=== PATIENT | male | born 1940 | race Caucasian/White ===

== ENCOUNTER 2018-02-17 05:58 | Day surgery (SDC) | payer MEDICARE, OTHER ==
[~2018-02-17 05:58] MED LIST: Lidocaine 1%/Sod Bicarbonate in NS 8.4% 1 ML Syringe IDERM PRN; Sodium Chloride 0.9% 10 ML Syringe FLUSH PRN
[2018-02-17] MEDS ORDERED: ceFAZolin 1 GM Vial ONE ×2 (06:20→06:51)
[2018-02-17] MEDS ORDERED: Iodine/Sodium Iodide 2% Tincture 30 ML Bottle ONE (06:20)
[2018-02-17] MEDS ORDERED: Vancomycin 1 GM SDV ONE (06:20)
[2018-02-17] MEDS ORDERED: Bupivacaine 0.25% 30 ML SDV ONE (06:21)
[2018-02-17] MEDS: Lactated Ringers 1,000 ML IV SCH ×2 (06:25→09:31)
[2018-02-17] MEDS ORDERED: Bisacodyl 5 MG Tab PO PRN (06:40)
[2018-02-17] MEDS ORDERED: Naloxone 0.4 MG/ML SDV IVPUSH PRN (06:40)
[2018-02-17] MEDS ORDERED: Ondansetron 4 MG/2 ML SDV IVPUSH PRN ×2 (06:40→08:24)
[2018-02-17] MEDS ORDERED: Morphine 2 MG/ML Syringe IVPUSH PRN (06:40)
[2018-02-17] MEDS ORDERED: Sennosides 8.6 MG Tab PO PRN (06:40)
[2018-02-17] MEDS ORDERED: Magnesium Hydroxide 400 MG/5 ML Susp 30 ML Cup PO PRN (06:40)
[2018-02-17] MEDS ORDERED: fentaNYL 100 MCG/2 ML SDV ONE (06:51)
[2018-02-17] MEDS ORDERED: Midazolam 1 MG/ML 2 ML SDV ONE (06:51)
[2018-02-17] MEDS ORDERED: Lidocaine 1% 4 ML ONE (06:51)
[2018-02-17] MEDS ORDERED: Ketorolac 30 MG/ML SDV ONE (06:51)
[2018-02-17] MEDS ORDERED: Bupivacaine 0.25% 10 ML SDV ONE (06:51)
[2018-02-17] MEDS ORDERED: Ketamine 500 mg/10 ML MDV ONE (06:51)
[2018-02-17] MEDS ORDERED: Propofol 200 MG/20 ML SDV ONE (06:51)
[2018-02-17] MEDS ORDERED: Lidocaine 1% 2 ML ONE (06:52)
[2018-02-17] MEDS ORDERED: Acetaminophen 325 MG Tab PO ONE (06:57)
[2018-02-17] MEDS ORDERED: Scopolamine 1.5 MG Transdermal Patch TOP ONE (07:10)
--- NOTE | 2018-02-17 07:15 | PCM.PREANE ---
Preanesthetic Assessment - Anesthesia/Transfusion/Family Hx Anesthesia History: Prior Anesthesia Reaction Type of Anesthesia Reaction: Excessive Nausea/Vomiting Family History of Anesthesia Reaction: No Transfusion History: No Prior Transfusion(s) - Review of Systems General: Malaise Pulmonary: Shortness of Breath (when he is doing a lot of activity) Cardiovascular: No Symptoms Gastrointestinal: No Symptoms Neurological: Other (Trigeminal neuralgia. Hard of hearing. Memory loss. ) - Physical Assessment NPO Status Date: 02/16/18 NPO Status Time: 21:00 O2 Sat by Pulse Oximetry: 94 Respiratory Rate: 16 Vital Signs: Last Vital Signs Temp 36.7 C 02/17/18 06:05 Pulse 62 02/17/18 06:05 Resp 16 02/17/18 06:05 BP 145/88 H 02/17/18 06:05 Pulse Ox 94 L 02/17/18 06:05 Height: 1.78 m Weight: 97.976 kg ASA Class: 2 Mental Status: Alert & Oriented x3 Airway Class: Mallampati = 2 Dentition: Reports: Missing Tooth/Teeth, Caries (Fillings/Caps) Thyro-Mental Finger Breadths: 3 Mouth Opening Finger Breadths: 3 ROM/Head Extension: Full Lungs: Clear to Auscultation, Normal Respiratory Effort Cardiovascular: Regular Rate, Regular Rhythm - Lab Values: Laboratory Last Values MRSA (PCR) Negative 02/04/18 11:04 - Imaging/EKG Impressions: Sinus Rhythm - Allergies Allergies/Adverse Reactions: Allergies Allergy/AdvReac Type Severity Reaction Status Date / Time No Known Allergies Allergy Verified 02/14/18 11:39 - Anesthesia Plan Beta [place]: Metoprolol Med Last Dose Date: 02/17/18 Med Last Dose Time: 05:00 - Acknowledgements Anesthesia Type Planned: Spinal Pt an Appropriate Candidate for the Planned Anesthesia: Yes Alternatives and Risks of Anesthesia Discussed w Pt/Guardian: Yes Pt/Guardian Understands and Agrees with Anesthesia Plan: Yes PreAnesthesia Questionnaire HEENT History: Reports: Hard of Hearing, Otitis Media, Sinusitis, Other (See Below) Other HEENT History: has glasses, hearing aids, pharyngitis Cardiovascular History: Reports: High Cholesterol, Hypertension Respiratory History: Reports: SOB, Other (See Below) Other Respiratory History: URI, bronchitis, pulmonary nodules, pneumonia Gastrointestinal History: Reports: None Genitourinary History: Reports: Other (See Below) Other Genitourinary History: prostate hypertrophy 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 Musculoskeletal History: Reports: Osteoarthritis, Other (See Below) Other Musculoskeletal History: lower leg arthropathy Neurological History: Reports: Other (See Below) Other Neuro History: memory loss, trigeminal neuralgia with surgical repair Psychiatric History: Reports: Other (See Below) Other Psychiatric History: malaise, fatigue Endocrine/Metabolic History: Reports: Diabetes, Type II, Hypothyroidism Hematologic History: Reports: None Immunologic History: Reports: None Oncologic (Cancer) History: Reports: Basal Cell Carcinoma Dermatologic History: Reports: Other (See Below) Other Dermatologic History: actinic keratosis, cellulitis and abcess, frostbite to feet, basal cell ca - Past Surgical History Head Surgeries/Procedures: Reports: Craniotomy HEENT Surgical History: Reports: None Cardiovascular Surgical History: Reports: None Respiratory Surgical History: Reports: None GI Surgical History: Reports: Cholecystectomy Female Surgical History: Reports: None Male Surgical History: Reports: None Endocrine Surgical History: Reports: None Neurological Surgical History: Reports: Other (See Below) Other Neurological Surgeries/Procedures: craniotomy Musculoskeletal Surgical History: Reports: None Oncologic Surgical History: Reports: None Dermatological Surgical History: Reports: None - SUBSTANCE USE Smoking Status *Q: Former Smoker Days Per Week of Alcohol Use: 0 Recreational Drug Use History: No - HOME MEDS Home Medications: Home Meds Levothyroxine Sodium 25 mcg PO DAILY 01/21/15 [History] Metoprolol Tartrate 25 mg PO BID 01/21/15 [History] atorvaSTATin Calcium [Atorvastatin Calcium] 20 mg PO DAILY 01/21/15 [History] Aspirin [[place] Aspirin] 81 mg PO DAILY 02/14/18 [History] Flaxseed Oil 1,000 mg PO DAILY 02/14/18 [History] Naproxen Sodium [Aleve] 220 mg PO BID PRN 02/14/18 [History] - CURRENT (IN HOUSE) MEDS Current Meds: Current Medications Aspirin (Ecotrin) 325 mg PO BID [facility] Bisacodyl (Dulcolax) 5 mg PO DAILY PRN PRN Reason: Constipation Morphine Sulfate 8 mg/Epinephrine HCl 0.3 mg/Cefuroxime Sodium 750 mg/Ketorolac Tromethamine 30 mg/Sodium Chloride 27.9 ml 0 mg .XX ONETIME ONE Stop: 02/17/18 07:31 Docusate Sodium (Colace) 100 mg PO BID [facility] Famotidine (Pepcid) 20 mg PO Q12H [facility] Lactated Ringer's (Ringers, Lactated) 1,000 mls @ 125 mls/hr IV ASDIRECTED [facility] Stop: 02/17/18 23:00 Cefazolin Sodium/Dextrose 2 gm (/ Premix) 50 mls @ 100 mls/hr IV Q8H [facility] Stop: 02/17/18 23:14 Acetaminophen (Ofirmev) 65 mls @ 400 mls/hr IV NOW ONE Stop: 02/17/18 07:15 Ketorolac Tromethamine (Toradol) 15 mg IVPUSH Q6H PRN PRN Reason: Pain Lidocaine/Sodium Bicarbonate (Buffered Lidocaine 1% In Ns 8.4%) 0.25 ml IDERM ONETIME PRN PRN Reason: Prior to IV Start Stop: 02/17/18 18:00 Magnesium Hydroxide (Milk Of Magnesia) 30 ml PO BID PRN PRN Reason: Constipation Morphine Sulfate (Morphine) 2 mg IVPUSH Q2H PRN PRN Reason: Breakthrough Pain Naloxone HCl (Narcan) 0.1 mg IVPUSH Q5M PRN PRN Reason: Oversedation Ondansetron HCl (Zofran) 4 mg IVPUSH Q6H PRN PRN Reason: Nausea/Vomiting Oxycodone HCl (Oxycontin) 10 mg PO ONETIME ONE Stop: 02/17/18 07:31 Oxycodone/Acetaminophen (Percocet 325-5 Mg) 1 - 2 tab PO Q4H PRN PRN Reason: Pain Pregabalin (Lyrica) 50 mg PO DAILY [facility] Senna (Senna) 8.6 mg PO BID PRN PRN Reason: Constipation Sodium Chloride (Saline Flush) 10 ml FLUSH ASDIRECTED PRN PRN Reason: Keep Vein Open Stop: 02/17/18 18:00 Discontinued Medications Acetaminophen (Tylenol) 1,000 mg PO NOW ONE Stop: 02/17/18 06:58 Bupivacaine HCl (Marcaine 0.25%) Confirm Administered Dose 30 ml .ROUTE .STK- MED ONE Stop: 02/17/18 06:22 Bupivacaine HCl (Sensorcaine-Mpf 0.25%) Confirm Administered Dose 10 ml .ROUTE .STK-MED ONE Stop: 02/17/18 06:52 Cefazolin Sodium (Ancef) Confirm Administered Dose 2 gm .ROUTE .STK-MED ONE Stop: 02/17/18 06:21 Cefazolin Sodium (Ancef) Confirm Administered Dose 2 gm .ROUTE .STK-MED ONE Stop: 02/17/18 06:52 Fentanyl (Sublimaze) Confirm Administered Dose 100 mcg .ROUTE .STK-MED ONE Stop: 02/17/18 06:52 Lidocaine HCl (Xylocaine-Mpf 1%) Confirm Administered Dose 4 mls @ as directed .ROUTE .STK-MED ONE Stop: 02/17/18 06:52 Lidocaine HCl (Xylocaine-Mpf 1%) Confirm Administered Dose 2 mls @ as directed .ROUTE .STK-MED ONE Stop: 02/17/18 06:53 Iodine (Iodine 2% Mild Tincture) Confirm Administered Dose 30 ml .ROUTE .STK- MED ONE Stop: 02/17/18 06:21 Ketamine HCl (Ketalar) Confirm Administered Dose 500 mg .ROUTE .STK-MED ONE Stop: 02/17/18 06:52 Ketorolac Tromethamine (Toradol) Confirm Administered Dose 30 mg .ROUTE .STK- MED ONE Stop: 02/17/18 06:52 Midazolam HCl (Versed 1 Mg/Ml) Confirm Administered Dose 2 mg .ROUTE .STK-MED ONE Stop: 02/17/18 06:52 Propofol (Diprivan 20 Ml) Confirm Administered Dose 600 mg .ROUTE .STK-MED ONE Stop: 02/17/18 06:52 Tranexamic Acid (Cyklokapron) Confirm Administered Dose 1,000 mg .ROUTE .STK- MED ONE Stop: 02/17/18 06:21 Vancomycin HCl (Vancomycin) Confirm Administered Dose 1 gm .ROUTE .STK-MED ONE Stop: 02/17/18 06:21
[2018-02-17] MEDS: Pregabalin 25 MG Cap PO SCH ×2 (07:20→11:40)
[2018-02-17] MEDS ORDERED: oxyCODONE ER 10 MG TAB.ER PO ONE (07:30)
[2018-02-17] MEDS ORDERED: Morphine 8 MG, EPINEPHrine 0.3 MG, Cefuroxime 750 MG, Ketorolac 30 MG, Sodium Chloride ... ONE ×5 (07:30)
[2018-02-17] MEDS ORDERED: EPINEPHrine 1 MG/ML SDV ONE (07:56)
[2018-02-17] MEDS ORDERED: Ropivacaine 0.5% 5 MG/ML 30 ML SDV ONE (07:56)
[2018-02-17] MEDS ORDERED: ePHEDrine 50 MG/ML SDV ONE (08:05)
[2018-02-17] MEDS ORDERED: Ondansetron 4 MG/2 ML SDV ONE (08:08)
[2018-02-17] MEDS ORDERED: Dexamethasone 4 MG/ML SDV ONE (08:08)
[2018-02-17] MEDS ORDERED: Lactated Ringers 1,000 ML ONE ×2 (08:08→09:06)
[2018-02-17] MEDS ORDERED: fentaNYL 100 MCG/2 ML SDV IVPUSH PRN (08:24)
[2018-02-17] MEDS ORDERED: ePHEDrine 50 MG/ML SDV IVPUSH PRN (08:24)
[2018-02-17] MEDS ORDERED: diphenhydrAMINE 50 MG/ML SDV IVPUSH PRN (08:24)
--- NOTE | 2018-02-17 09:18 | PCM.POSTAN ---
POST ANESTHESIA ASSESSMENT - MENTAL STATUS Mental Status: Confused - VITAL SIGNS Pulse Rate: 63 SaO2: 95 Resp Rate: 12 Blood Pressure: 91/54 Temperature: 36.8 C - RESPIRATORY Respiratory Status: Respiratory Rate WNL, Airway Patent, O2 Saturation Stable, Supplemental Oxygen - CARDIOVASCULAR CV Status: Pulse Rate WNL, Blood Pressure Stable - GASTROINTESTINAL GI Status: No Symptoms - PAIN Pain Score: 0 - POST OP HYDRATION Hydration Status: Adequate & Stable
--- NOTE | 2018-02-17 09:40 | CR ---
Right knee: AP and lateral views of the right knee were obtained. Comparison: No previous knee exam. Knee prosthesis is seen. Components are aligned. Soft tissue air is identified. Underlying bony structures are intact. Vascular calcification is seen. Impression: 1. Satisfactory postop radiographic appearance of recently placed right knee prosthesis. Diagnostic code #2
--- NOTE | 2018-02-17 09:52 | PCM.SN ---
- Free Text/Narrative Note: Right selective femoral nerve block at the adductor canal for post-procedure pain control under US guidance requested by Dr. Man. Time Out: 931 Start: 931 End: 939 Chart reviewed. Consent signed. Questions answered. Appropriate monitors applied. Time out performed. Right mid-shaft femur identified with ultrasound, scanning medially of femur, the femoral artery in the adductor canal visualized , and the femoral nerve located laterally to the artery. The skin was prepped lateral to the ultrasound probe with chlorahexadine. The 21ga 4 insulated block needle was inserted under direct ultrasound guidance into the adductor canal. 25mL of 0.5% ropivacaine with 1:200,000 epinephrine was injected circumferentially around the nerve with intermittent negative aspiration noted. Patient tolerated the procedure well. See pictures on progress note and vital signs on nurses notes. Block completed in PACU. Marlyn Gaines CRNA
[2018-02-17] MEDS: ceFAZolin 2 GM in Premix Bag 1 BAG IV SCH (15:19)
--- NOTE | 2018-02-17 17:10 | PCM.OPNOTE ---
- General Post-Op/Procedure Note Date of Surgery/Procedure: 02/17/18 Operative Procedure(s): right total knee arthroplasty Pre Op Diagnosis: right knee osteoarthrosis Post-Op Diagnosis: Same Anesthesia Technique: Local, MAC, Spinal Primary Surgeon: Bandar Man Anesthesia Provider: Anne-Marie Gaines Temperature Inspector: Alina Ortiz Temperature Inspector: Kanwal Overton EBL in mLs: 300 Complications: None Condition: Good Free Text/Narrative:: Intake & Output 02/17/18 02/17/18 02/17/18 06:59 14:59 22:59 Intake Total 510 Balance 510 size 5 femur size 6 tibia 9mm 35x10 press fit
[2018-02-17] MEDS: Metoprolol Tartrate 25 MG Tab PO SCH (21:10)
[2018-02-17] MEDS: Famotidine 20 MG Tab PO SCH (21:10)
[2018-02-17] MEDS: Docusate Sodium 100 MG Cap PO SCH (21:10)
[2018-02-17] MEDS: Acetaminophen/oxyCODONE 325-5 MG Tab PO PRN (21:11)
[2018-02-17] MEDS: Ketorolac 15 MG/ML SDV IVPUSH PRN (21:12)
[2018-02-18] MEDS: ceFAZolin 2 GM in Premix Bag 1 BAG IV SCH ×2 (00:07→06:46)
--- NOTE | 2018-02-18 06:19 | PCM.CONS ---
H&P History of Present Illness - General Date of Service: 02/18/18 Admit Problem/Dx: Admission Diagnosis/Problem Admission Diagnosis/Problem Osteoarthritis of knee Source of Information: Patient, Old Records, Provider, RN History Limitations: Reports: No Limitations - History of Present Illness Initial Comments - Free Text/Narative: Hiro Ivory is a 77 yo male patient of Dr. Man who is post-operative day 1 of right TKA. Hospital medicine was consulted for post-operative medical care. At this time he is resting comfortably in the chair. Pain is controlled. He denies any chest pain, shortness of breath, palpitations, nausea, or vomiting. He carries a history of: AKUTAN, HLD, HTN, pulmonary nodule, prostate hypertrophy, Type II DM, hypothyroidism, basal cell carcinoma. He is a former smoker. He is a full code. His primary care provider is Dr. King at [facility]. Right Knee Pain Score (Numeric/FACES): 6 - Related Data Allergies/Adverse Reactions: Allergies Allergy/AdvReac Type Severity Reaction Status Date / Time No Known Allergies Allergy Verified 02/14/18 11:39 Home Medications: Home Meds Levothyroxine Sodium 25 mcg PO DAILY 01/21/15 [History] Metoprolol Tartrate 25 mg PO BID 01/21/15 [History] atorvaSTATin Calcium [Atorvastatin Calcium] 20 mg PO DAILY 01/21/15 [History] Aspirin [[place] Aspirin] 81 mg PO DAILY 02/14/18 [History] Flaxseed Oil 1,000 mg PO DAILY 02/14/18 [History] Naproxen Sodium [Aleve] 220 mg PO BID PRN 02/14/18 [History] Past Medical History HEENT History: Reports: Hard of Hearing, Otitis Media, Sinusitis, Other (See Below) Other HEENT History: has glasses, hearing aids, pharyngitis Cardiovascular History: Reports: High Cholesterol, Hypertension Respiratory History: Reports: SOB, Other (See Below) Other Respiratory History: URI, bronchitis, pulmonary nodules, pneumonia Gastrointestinal History: Reports: None Genitourinary History: Reports: Other (See Below) Other Genitourinary History: prostate hypertrophy 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 Musculoskeletal History: Reports: Osteoarthritis, Other (See Below) Other Musculoskeletal History: lower leg arthropathy Neurological History: Reports: Other (See Below) Other Neuro History: memory loss, trigeminal neuralgia with surgical repair Psychiatric History: Reports: Other (See Below) Other Psychiatric History: malaise, fatigue Endocrine/Metabolic History: Reports: Diabetes, Type II, Hypothyroidism Hematologic History: Reports: None Immunologic History: Reports: None Oncologic (Cancer) History: Reports: Basal Cell Carcinoma Dermatologic History: Reports: Other (See Below) Other Dermatologic History: actinic keratosis, cellulitis and abcess, frostbite to feet, basal cell ca - Past Surgical History Head Surgeries/Procedures: Reports: Craniotomy HEENT Surgical History: Reports: None Cardiovascular Surgical History: Reports: None Respiratory Surgical History: Reports: None GI Surgical History: Reports: Cholecystectomy Female Surgical History: Reports: None Male Surgical History: Reports: None Endocrine Surgical History: Reports: None Neurological Surgical History: Reports: Other (See Below) Other Neurological Surgeries/Procedures: craniotomy Musculoskeletal Surgical History: Reports: None Oncologic Surgical History: Reports: None Dermatological Surgical History: Reports: None Social & Family History - Tobacco Use Smoking Status *Q: Former Smoker Used Tobacco, but Quit: Yes Month/Year Tobacco Last Used: 1995 - Caffeine Use Caffeine Use: Reports: Coffee, Energy Drinks - Alcohol Use Days Per Week of Alcohol Use: 0 - Recreational Drug Use Recreational Drug Use: No H&P Review of Systems - Review of Systems: Review Of Systems: See Below General: Reports: No Symptoms HEENT: Reports: No Symptoms Pulmonary: Reports: No Symptoms Cardiovascular: Reports: No Symptoms Gastrointestinal: Reports: No Symptoms Genitourinary: Reports: No Symptoms Musculoskeletal: Reports: Leg Pain, Joint Pain Skin: Reports: No Symptoms Psychiatric: Reports: No Symptoms Neurological: Reports: No Symptoms Hematologic/Lymphatic: Reports: No Symptoms Immunologic: Reports: No Symptoms Exam - Exam Exam: See Below - Vital Signs Vital Signs: Last Vital Signs Temp 97.5 F 02/18/18 03:05 Pulse 57 L 02/18/18 03:05 Resp 16 02/18/18 03:05 BP 130/61 02/18/18 03:05 Pulse Ox 92 L 02/18/18 03:05 Weight: 216 lb - Exam General: Alert, Oriented, Cooperative. No: Mild Distress HEENT: Conjunctiva Clear, EACs Clear, EOMI, Hearing Intact, Mucosa Moist & [place] , Nares Patent, Normal Nasal Septum, Posterior Pharynx Clear, PERRLA Neck: Supple, Trachea Midline Lungs: Clear to Auscultation, Normal Respiratory Effort Cardiovascular: Regular Rate, Regular Rhythm GI/Abdominal Exam: Normal Bowel Sounds, Soft, Non-Tender, No Organomegaly, No Distention, No Abnormal Bruit, No Mass, Pelvis Stable (Male) Exam: Deferred Rectal (Males) Exam: Deferred Back Exam: Normal Inspection, Full Range of Motion Extremities: No Pedal Edema, Normal Capillary Refill, Leg Pain, Limited Range of Motion, Other (HALEY bandage in place on right leg. Bandage is dry and intact. Cooling pack in place) Peripheral Pulses: 3+: Radial (L), Radial (R), Posterior Tibial (L), Posterior Tibial (R), Dorsalis Pedis (L), Dorsalis Pedis (R) Skin: Warm, Dry, Intact Neurological: Cranial Nerves Intact (grossly) Neuro Extensive - Mental Status: Alert, Oriented x3, Normal Mood/Affect, Normal Cognition, Memory Intact Psychiatric: Alert, Normal Affect, Normal Mood - Patient Data Result Diagrams: 02/18/18 05:46 02/18/18 05:46 Consult PN Assessment/Plan POD#: 0 Procedures: Procedures ASSAY OF TROPONIN QUANT (01/21/15) C-REACTIVE PROTEIN (01/21/15) CHEST X-RAY 1 VIEW FRONTAL (01/21/15) COMPLETE CBC W/AUTO DIFF WBC (01/21/15) COMPREHEN METABOLIC PANEL (01/21/15) CREATINE MB FRACTION (01/21/15) ELECTROCARDIOGRAM TRACING (01/21/15) EMERGENCY DEPT VISIT (01/21/15) ROUTINE VENIPUNCTURE (01/21/15) TISSUE EXAM BY PATHOLOGIST (09/07/14) (1) HLD (hyperlipidemia) SNOMED Code(s): 32038147 Code(s): E78.5 - HYPERLIPIDEMIA, UNSPECIFIED Priority: Low Current Visit : No Qualifiers: Hyperlipidemia type: unspecified Qualified Code(s): E78.5 - Hyperlipidemia , unspecified (2) HTN (hypertension) SNOMED Code(s): 97585800 Code(s): I10 - ESSENTIAL (PRIMARY) HYPERTENSION Priority: Low Current Visit: No Qualifiers: Hypertension type: unspecified Qualified Code(s): I10 - Essential (primary ) hypertension (3) S/P total knee arthroplasty SNOMED Code(s): 5118855599707, 970793041, 6886809627021 Code(s): Z96.659 - PRESENCE OF UNSPECIFIED ARTIFICIAL KNEE JOINT Priority: High Current Visit: Yes Qualifiers: Laterality: right Qualified Code(s): Z96.651 - Presence of right artificial knee joint (4) Osteoarthritis SNOMED Code(s): 971932131 Code(s): M19.90 - UNSPECIFIED OSTEOARTHRITIS, UNSPECIFIED SITE Priority: High Current Visit: Yes Qualifiers: Osteoarthritis location: knee Osteoarthritis type: primary Laterality: right Qualified Code(s): M17.11 - Unilateral primary osteoarthritis, right knee (5) Type II diabetes mellitus SNOMED Code(s): 75350043 Code(s): E11.9 - TYPE 2 DIABETES MELLITUS WITHOUT COMPLICATIONS Priority: Low Current Visit: Yes Qualifiers: Diabetes mellitus moth exterminator insulin use: unspecified moth exterminator insulin use status Diabetes mellitus complication status: with unspecified complications Qualified Code(s): E11.8 - Type 2 diabetes mellitus with unspecified complications (6) Hypothyroidism SNOMED Code(s): 92965724 Code(s): E03.9 - HYPOTHYROIDISM, UNSPECIFIED Priority: Low Current Visit : No Qualifiers: Hypothyroidism type: unspecified Qualified Code(s): E03.9 - Hypothyroidism , unspecified Problem List Initiated/Reviewed/Updated: Yes Plan: I/P: Acute: S/P right total knee arthroplasty - post-operative day 1 -DVT prophylaxis and pain management per primary care team -PT/OT -IS/RT -Monitor oxygen saturation -Titrate oxygen as needed -Vital signs stable -Monitor labs -Pre-operative Hgb was 15.3, now 11.5 -Pre-operative GFR was 87, now >60 -Pre-operative A1C was 5.6 Osteoarthritis of right knee -Pain management per primary care team Chronic: AKUTAN HLD HTN Pulmonary nodules Prostate hypertrophy Type II DM Hypothyroidism Basal cell carcinoma Plan: CM for discharge planning GI prophylaxis Home medications as indicated Other orders as listed above Routine AM labs He is a full code. His PCP is Dr. King at [facility] Hiro is doing very well. He has been up with PT/OT. He has urinated. He has no complaints. No nursing concerns. From a hospitalist standpoint he is clear for discharge pending primary team agreement. Thank you for allowing us to participate in the care of this patient!! Requesting Provider: Dr. Man Date Consult Requested: 02/17/18 Reason for Consult: Post-operative medical care Patient History Reviewed: Yes Admission H&P Reviewed: Yes Time Spent (in minutes): 30
[2018-02-18] MEDS: Acetaminophen/oxyCODONE 325-5 MG Tab PO PRN ×2 (06:44→11:03)
[2018-02-18] MEDS: Ketorolac 15 MG/ML SDV IVPUSH PRN (06:45)
--- NOTE | 2018-02-18 08:14 | PCM48HPAN ---
Post Anesthesia Note - EVALUATION WITHIN 48HRS OF ANESTHETIC Vital Signs in Normal Range: Yes Patient Participated in Evaluation: Yes Respiratory Function Stable: Yes Airway Patent: Yes Cardiovascular Function Stable: Yes Hydration Status Stable: Yes Pain Control Satisfactory: Yes Nausea and Vomiting Control Satisfactory: Yes Mental Status Recovered: Yes
[2018-02-18] MEDS ORDERED: Levothyroxine 25 MCG Tab PO SCH (09:00)
[2018-02-18] MEDS ORDERED: Simvastatin 20 MG Tab PO SCH (09:00)
[2018-02-18] MEDS ORDERED: Aspirin 325 MG Tab.EC PO SCH (09:00)
[2018-02-18] MEDS ORDERED: Aspirin 81 MG Tab.Chew PO SCH (09:00)
[2018-02-18] MEDS: Famotidine 20 MG Tab PO SCH (09:21)
[2018-02-18] MEDS: Docusate Sodium 100 MG Cap PO SCH (09:21)
[2018-02-18] MEDS: Metoprolol Tartrate 25 MG Tab PO SCH (09:21)
[2018-02-18 11:55] VITALS: BP 118/65
--- NOTE | 2018-02-18 23:17 | PCM.SURGPN ---
- General Info Date of Service: 02/18/18 POD#: 1 Functional Status: Reports: Pain Controlled, Tolerating Diet, Ambulating, Urinating, Incentive Spirometry - Review of Systems Musculoskeletal: Reports: Other (The pt has met inpatient therapy goals and feels prepared for discharge to home.) - Patient Data Vitals - Most Recent: Last Vital Signs Temp 97.5 F 02/18/18 11:45 Pulse 60 02/18/18 11:45 Resp 18 02/18/18 11:45 BP 118/65 02/18/18 11:45 Pulse Ox 92 L 02/18/18 11:45 Weight - Most Recent: 216 lb I&O - Last 24 Hours: Intake & Output 02/18/18 02/18/18 02/19/18 14:59 22:59 06:59 Intake Total 240 Balance 240 Lab Results Last 24 Hrs: Laboratory Results - last 24 hr 02/18/18 02/18/18 Range/Units 05:46 05:46 WBC 9.73 H (4.23-9.07) K/mm3 RBC 3.66 L (4.63-6.08) M/mm3 Hgb 11.5 L (13.7-17.5) gm/L Hct 34.8 L (40.1-51.0) % MCV 95.1 H (79.0-92.2) fl MCH 31.4 (25.7-32.2) pg MCHC 33.0 (32.2-35.5) g/dl RDW Std Deviation 42.8 (35.1-43.9) fL Plt Count 142 L (163-337) K/mm3 MPV 11.0 (9.4-12.3) fl Sodium 143 (136-145) mEq/L Potassium 4.1 (3.5-5.1) mEq/L Chloride 108 H (98-107) mEq/L Carbon Dioxide 26 (21-32) mEq/L Anion Gap 13.1 (5-15) BUN 21 H (7-18) mg/dL Creatinine 0.8 (0.7-1.3) mg/dL Est Cr Clr Drug Dosing 77.31 mL/min Estimated GFR (MDRD) > 60 (>60) mL/min BUN/Creatinine Ratio 26.3 H (14-18) Glucose 154 H (83-115) mg/dL Calcium 8.6 (8.5-10.1) mg/dL Total Bilirubin 0.7 (0.2-1.0) mg/dL AST 9 L (15-37) U/L ALT 22 (16-63) U/L Alkaline Phosphatase 52 (46-116) U/L Total Protein 5.3 L (6.4-8.2) g/dl Albumin 2.8 L (3.4-5.0) g/dl Globulin 2.5 gm/dL Albumin/Globulin Ratio 1.1 (1-2) Med Orders - Current: Current Medications Discontinued Medications Acetaminophen (Tylenol) 1,000 mg PO NOW ONE Stop: 02/17/18 06:58 Last Admin: 02/17/18 07:28 Dose: Not Given Aspirin (Ecotrin) 325 mg PO BID MARY Last Admin: 02/18/18 09:21 Dose: 325 mg Aspirin (Aspirin) 81 mg PO DAILY MARY Bisacodyl (Dulcolax) 5 mg PO DAILY PRN PRN Reason: Constipation Bupivacaine HCl (Marcaine 0.25%) Confirm Administered Dose 30 ml .ROUTE .STK- MED ONE Stop: 02/17/18 06:22 Last Admin: 02/17/18 08:32 Dose: 30 ml Bupivacaine HCl (Sensorcaine-Mpf 0.25%) Confirm Administered Dose 10 ml .ROUTE .STK-MED ONE Stop: 02/17/18 06:52 Cefazolin Sodium (Ancef) Confirm Administered Dose 2 gm .ROUTE .STK-MED ONE Stop: 02/17/18 06:21 Cefazolin Sodium (Ancef) Confirm Administered Dose 2 gm .ROUTE .STK-MED ONE Stop: 02/17/18 06:52 Last Admin: 02/17/18 08:29 Dose: 2 gm Morphine Sulfate 8 mg/Epinephrine HCl 0.3 mg/Cefuroxime Sodium 750 mg/Ketorolac Tromethamine 30 mg/Sodium Chloride 27.9 ml 0 mg .XX ONETIME ONE Stop: 02/17/18 07:31 Last Admin: 02/17/18 08:31 Dose: 788.3 mg Dexamethasone (Dexamethasone) Confirm Administered Dose 4 mg .ROUTE .STK-MED ONE Stop: 02/17/18 08:09 Diphenhydramine HCl (Benadryl) 25 mg IVPUSH Q6H PRN PRN Reason: Pruritis Stop: 02/17/18 11:00 Docusate Sodium (Colace) 100 mg PO BID [facility] Last Admin: 02/18/18 09:21 Dose: 100 mg Ephedrine Sulfate (Ephedrine Sulfate) Confirm Administered Dose 50 mg .ROUTE .STK-MED ONE Stop: 02/17/18 08:06 Ephedrine Sulfate (Ephedrine Sulfate) 5 mg IVPUSH ASDIRECTED PRN PRN Reason: Hypotension Stop: 02/17/18 11:00 Epinephrine HCl (Adrenalin) Confirm Administered Dose 1 mg .ROUTE .STK-MED ONE Stop: 02/17/18 07:57 Famotidine (Pepcid) 20 mg PO BID [facility] Last Admin: 02/18/18 09:21 Dose: 20 mg Fentanyl (Sublimaze) Confirm Administered Dose 100 mcg .ROUTE .STK-MED ONE Stop: 02/17/18 06:52 Fentanyl (Sublimaze) 50 mcg IVPUSH Q5M PRN PRN Reason: Pain Stop: 02/17/18 11:00 Lactated Ringer's (Ringers, Lactated) 1,000 mls @ 125 mls/hr IV ASDIRECTED [facility] Stop: 02/17/18 23:00 Last Admin: 02/17/18 09:31 Dose: 125 mls/hr Cefazolin Sodium/Dextrose 2 gm (/ Premix) 50 mls @ 100 mls/hr IV Q8H [facility] Stop: 02/18/18 07:29 Last Admin: 02/18/18 06:46 Dose: 100 mls/hr Lidocaine HCl (Xylocaine-Mpf 1%) Confirm Administered Dose 4 mls @ as directed .ROUTE .STK-MED ONE Stop: 02/17/18 06:52 Lidocaine HCl (Xylocaine-Mpf 1%) Confirm Administered Dose 2 mls @ as directed .ROUTE .STK-MED ONE Stop: 02/17/18 06:53 Acetaminophen (Ofirmev) 100 mls @ 400 mls/hr IV NOW ONE Stop: 02/17/18 07:29 Last Admin: 02/17/18 07:24 Dose: 400 mls/hr Lactated Ringer's (Ringers, Lactated) Confirm Administered Dose 1,000 mls @ as directed .ROUTE .STK-MED ONE Stop: 02/17/18 08:09 Lactated Ringer's (Ringers, Lactated) Confirm Administered Dose 1,000 mls @ as directed .ROUTE .STK-MED ONE Stop: 02/17/18 09:07 Iodine (Iodine 2% Mild Tincture) Confirm Administered Dose 30 ml .ROUTE .STK- MED ONE Stop: 02/17/18 06:21 Last Admin: 02/17/18 08:25 Dose: 18 ml Ketamine HCl (Ketalar) Confirm Administered Dose 500 mg .ROUTE .STK-MED ONE Stop: 02/17/18 06:52 Ketorolac Tromethamine (Toradol) 15 mg IVPUSH Q6H PRN PRN Reason: Pain Last Admin: 02/18/18 06:45 Dose: 15 mg Ketorolac Tromethamine (Toradol) Confirm Administered Dose 30 mg .ROUTE .STK- MED ONE Stop: 02/17/18 06:52 Levothyroxine Sodium (Levothyroxine) 25 mcg PO DAILY [facility] Last Admin: 02/18/18 09:21 Dose: 25 mcg Lidocaine/Sodium Bicarbonate (Buffered Lidocaine 1% In Ns 8.4%) 0.25 ml IDERM ONETIME PRN PRN Reason: Prior to IV Start Stop: 02/17/18 18:00 Last Admin: 02/17/18 06:24 Dose: 0.25 ml Magnesium Hydroxide (Milk Of Magnesia) 30 ml PO BID PRN PRN Reason: Constipation Metoprolol Tartrate (Lopressor) 25 mg PO BID [facility] Last Admin: 02/18/18 09:21 Dose: 25 mg Midazolam HCl (Versed 1 Mg/Ml) Confirm Administered Dose 2 mg .ROUTE .STK-MED ONE Stop: 02/17/18 06:52 Miscellaneous Information (Remove Patch) 0 ea TRDERM DAILY@0700 [facility] Stop: 02/20/18 08:00 Morphine Sulfate (Morphine) 2 mg IVPUSH Q2H PRN PRN Reason: Breakthrough Pain Naloxone HCl (Narcan) 0.1 mg IVPUSH Q5M PRN PRN Reason: Oversedation Ondansetron HCl (Zofran) 4 mg IVPUSH Q6H PRN PRN Reason: Nausea/Vomiting Ondansetron HCl (Zofran) Confirm Administered Dose 4 mg .ROUTE .STK-MED ONE Stop: 04/02/18 08:09 Ondansetron HCl (Zofran) 4 mg IVPUSH ONETIME PRN PRN Reason: Nausea/Vomiting Stop: 02/17/18 11:00 Oxycodone HCl (Oxycontin) 10 mg PO ONETIME ONE Stop: 02/17/18 07:31 Last Admin: 02/17/18 07:21 Dose: 10 mg Oxycodone/Acetaminophen (Percocet 325-5 Mg) 1 - 2 tab PO Q4H PRN PRN Reason: Pain Last Admin: 02/18/18 11:03 Dose: 2 tab Pregabalin (Lyrica) 50 mg PO DAILY [facility] Last Admin: 02/17/18 11:40 Dose: Not Given Propofol (Diprivan 20 Ml) Confirm Administered Dose 600 mg .ROUTE .STK-MED ONE Stop: 02/17/18 06:52 Ropivacaine (Naropin 0.5%) Confirm Administered Dose 30 ml .ROUTE .STK-MED ONE Stop: 02/17/18 07:57 Scopolamine (Transderm-Scop) 1.5 mg TOP ONETIME ONE Stop: 02/17/18 07:11 Last Admin: 02/17/18 07:17 Dose: 1.5 mg Senna (Senna) 8.6 mg PO BID PRN PRN Reason: Constipation Simvastatin (Zocor) 20 mg PO DAILY [facility] Last Admin: 02/18/18 09:21 Dose: 20 mg Sodium Chloride (Saline Flush) 10 ml FLUSH ASDIRECTED PRN PRN Reason: Keep Vein Open Stop: 02/17/18 18:00 Tranexamic Acid (Cyklokapron) Confirm Administered Dose 1,000 mg .ROUTE .STK- MED ONE Stop: 02/17/18 06:21 Last Admin: 02/17/18 08:37 Dose: 1,000 mg Vancomycin HCl (Vancomycin) Confirm Administered Dose 1 gm .ROUTE .STK-MED ONE Stop: 02/17/18 06:21 Last Admin: 02/17/18 08:33 Dose: 1 gm - Exam Wound/Incisions: Dressing Dry and Intact General: Alert, Cooperative, No Acute Distress Lungs: Normal Respiratory Effort Extremities: Other (NVS intact for BLE. Renetta's negative for BLE.) - Problem List Review Problem List Initiated/Reviewed/Updated: Yes - My Orders Last 24 Hours: Active Orders 24 hr Category Date Time Status Ready for Discharge [RC] PER UNIT ROUTINE Care 02/18/18 13:25 Active - Assessment Assessment (Free Text/Narrative):: POD#1 - right TKA - Plan Plan (Free Text/Narrative):: 1. Hgb 11.5. 2. Discharge to home today. The pt will have the assistance of his family. 3. ASA, frequent mobility, TEDs. 4. Outpatient therapy ordered. The pt's case was discussed with Dr. Man.
--- NOTE | 2018-02-20 09:23 | OR ---
DATE OF OPERATION: 02/17/2018 SURGEON: Bandar Man MD OPERATION PERFORMED: Right total knee arthroplasty. PREOPERATIVE DIAGNOSIS: Right knee osteoarthrosis. POSTOPERATIVE DIAGNOSIS: Right knee osteoarthrosis. ANESTHESIA: Local MAC with spinal. ANESTHESIA PROVIDER: Estee Gaines CRNA ASSISTANTS: Alina Ortiz PA-C and Kanwal Overton LPN. ESTIMATED BLOOD LOSS: 300 mL. COMPLICATIONS: None. CONDITION: Stable. IMPLANTS: 1. Pily size 5 press-fit CR femur. 2. Pily size 6 press-fit tibial base plate. 3. Pily size 6, 9-mm CS polyethylene insert. 4. Pily size 35 x 10 mm asymmetric press-fit patella. DESCRIPTION OF PROCEDURE: The patient was identified in the preop holding area. Proper site was marked and identified by the surgeon. The patient was taken back to the operating theater. After adequate anesthesia, the patient's right lower extremity had a nonsterile tourniquet applied and it was then sterilely prepped and draped in the usual sterile fashion. OR timeout was performed. The patient received 2 g IV Ancef. At this time, right lower extremity was exsanguinated. Tourniquet was insufflated to 300 mmHg. Standard medial parapatellar incision was made. Medial parapatellar arthrotomy was created. Deep fibers of the MCL were raised and anterior fat pad was resected. At this time, attention was turned to the patella. Patella measured 25, it was resected to a 14 for a 35 x 10 mm patella. Drill holes were then drilled and found to be in adequate position. The drill was then drilled in the distal femur and the intramedullary distal femoral cutting guide was then placed. 10 mm was resected off the distal femur and was found to be an adequate resection. Sizing guide was placed. It was found to be a size 6 femur that was shown on the implant record at the beginning of this dictation. The drill holes were drilled for the epicondylar axis using Whitesides line and epicondyles as reference. At this time, the 4-in-1 cutting block was placed. An anterior posterior and anterior and posterior chamfer cuts were then completed. The correct size box cut was then placed and the box cut was completed and found to be an adequate resection. Attention was turned to the tibia. The posterior medial lateral retractors were placed. The extramedullary tibial guide was placed. It was placed in the old footprint of the ACL. It was aligned with the center of the ankle and 0 degrees of slope, 9 mm was then resected off the unaffected lateral side. There was found to be an acceptable reduction. At this time, posterior osteophytes were removed along with medial and lateral meniscus. A trial implant was placed with a correct sized tibia that was mentioned at the beginning of the dictation. The patient's knee was brought through range of motion. The patella was tracking centrally and was stable to varus and valgus stress. Alignment was found to be roughly at 0 degrees. The tibia was stamped and drilled in proper rotation. The universal tibial base plate was press-fit into place. The femoral component was then press-fit into place. The 9mm polyethylene was the impacted into place. The patient's knee was brought into full extension. The patella was then press-fit in place at this time. Tourniquet was deflated. One liter dilute Betadine solution was irrigated through the knee along with 3 L of pulse lavage irrigation with Ancef. Periarticular injection was then completed. The patient's knee was brought through a range of motion. Knee was found to be stable to varus valgus stress, the patella was tracking centrally with full range of motion. At this time, a #2 barbed suture was used for closure of the medial parapatellar arthrotomy. Topical tranexamic acid was placed. 2-0 Vicryl was used subcutaneously, a running 3-0 Monocryl was used subcuticularly. The patient tolerated the procedure well and was sent to the PACU in stable condition. JAYDEN /[id number] DAVID
== END 2018-02-18 14:08 | disposition home or self-care (01) ==
LOC: JD.SDS 05:58 → JD.MS 05:59 → JD.SDS 02-18 14:08
PROVIDERS: ATTEND Orthopaedic Surgery
DX: M17.11 Unilateral primary osteoarthritis, right knee (principal); I10 Essential (primary) hypertension; Z87.891 Personal history of nicotine dependence; Z79.82 Long term (current) use of aspirin; Z79.899 Other long term (current) drug therapy
CPT/HCPCS: 27447; 36415; 64450; 73560; 80053; 85027; 87641; 97110; 97116; 97162; 97165; 97530; 97535; A9270; C1776; J0171; J0690; J0697; J1100; J1885; J2250; J2270; J2405; J2795; J3010; J3370; J3490; J7120; 97161-GP; J2704

== ENCOUNTER 2018-12-26 12:11 | Emergency (ER) | payer MEDICARE, OTHER ==
[2018-12-26 12:16] VITALS: BP 150/93
--- NOTE | 2018-12-26 12:28 | EDM.PDOC ---
ED HPI GENERAL MEDICAL PROBLEM - General Chief Complaint: Respiratory Problem Stated Complaint: [facility] Time Seen by Provider: 12/26/18 12:23 Source of Information: Reports: Patient History Limitations: Reports: No Limitations - History of Present Illness INITIAL COMMENTS - FREE TEXT/NARRATIVE: 78-year-old male sent from [facility] where he was seen by his usual care provider Dr. Torres. He's been ill with upper spine trach tract infection and paroxysmal cough for the better part of 2 weeks which was felt to be viral in etiology. He states he is still coughing but occasionally only in slight whitish sputum is obtained no hemoptysis. He feels short of breath in certain positions such as bending over and on minimal exertion. Of note the patient had left total knee replacement I believe October 20 chest x-ray done this morning we was reportedly normal. However lab work revealed his troponin to be elevated at 0.338 and his d-dimer elevated at 1.94. His O2 sats here are 98% on room air. His ECG suggests there is some mild ST segment depression in V3 to V5 suggestive of a mild non-STEMI. On examination he has a few crackles in both bases of his lungs. Therefore it concern is whether he's had a myocardial infarction versus a pulmonary embolism. He denies any orthopnea or PND. He has no known heart problems Onset: Gradual (He's been coughing for the better part of 2 weeks and feeling somewhat short of breath. Sputum is clear and minimal at this time. No associated fever chills.) Duration: Day(s):, Intermittent, Waxing/Waning Location: Reports: Chest (Dyspnea on minimal exertion cough) Quality: Reports: Other Severity: Mild (Shortness of breath on exertion with mild cough) Improves with: Reports: Rest Worsens with: Reports: Other (Exertion) Context: Denies: Activity ( no orthopnea or PND), Exercise, Sick Contact, Trauma Associated Symptoms: Reports: Cough (Slight production of clear sputum no hemoptysis), cough w sputum, Malaise, Shortness of Breath. Denies: No Other Symptoms, Confusion, Chest Pain ( a minimal), Diaphoresis, Fever/Chills, Headaches, Loss of Appetite, Nausea/Vomiting, Rash (On exertion even bending over to tie shoes makes him short of breath), Seizure, Syncope, Weakness Treatments SAWSMITH: Reports: EKG, Oxygen - Related Data Allergies Allergy/AdvReac Type Severity Reaction Status Date / Time No Known Allergies Allergy Verified 12/26/18 12:16 Home Meds: Home Meds Metoprolol Tartrate 25 mg PO BID 01/21/15 [History] atorvaSTATin Calcium [Atorvastatin Calcium] 20 mg PO DAILY 01/21/15 [History] Levothyroxine [Synthroid] 50 mcg PO DAILY 10/17/18 [History] Acetaminophen/oxyCODONE [Percocet 325-5 MG] 1 - 2 tab PO Q6H PRN #60 tablet 02/02 [Rx] Aspirin [Ecotrin] 325 mg PO BID #84 tab.ec 10/20/18 [Rx] Bisacodyl [Dulcolax] 5 mg PO DAILY PRN tablet 10/20/18 [Rx] Docusate Sodium [Colace] 100 mg PO BID cap 10/20/18 [Rx] Famotidine [Pepcid] 20 mg PO Q12H tablet 10/20/18 [Rx] Magnesium Hydroxide [Milk of Magnesia] 30 ml PO BID PRN cup 10/20/18 [Rx] Sennosides [Senna] 8.6 mg PO BID PRN tablet 10/20/18 [Rx] Past Medical History HEENT History: Reports: Hard of Hearing, Impaired Vision, Otitis Media, Sinusitis, Other (See Below) Other HEENT History: has glasses, hearing aids, pharyngitis Cardiovascular History: Reports: High Cholesterol, Hypertension Respiratory History: Reports: SOB, Other (See Below) Other Respiratory History: URI, bronchitis, pulmonary nodules, pneumonia Gastrointestinal History: Reports: None Genitourinary History: Reports: BPH, Other (See Below) Other Genitourinary History: prostate hypertrophy 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 Musculoskeletal History: Reports: Arthritis, Osteoarthritis, Other (See Below) Other Musculoskeletal History: lower leg arthropathy Neurological History: Reports: Other (See Below) Other Neuro History: memory loss, trigeminal neuralgia with surgical repair Psychiatric History: Reports: Other (See Below) Other Psychiatric History: malaise, fatigue Endocrine/Metabolic History: Reports: Diabetes, Type II, Hypothyroidism Hematologic History: Reports: None Immunologic History: Reports: None Oncologic (Cancer) History: Reports: Basal Cell Carcinoma Dermatologic History: Reports: Other (See Below) Other Dermatologic History: actinic keratosis, cellulitis and abcess, frostbite to feet, basal cell ca - Past Surgical History Head Surgeries/Procedures: Reports: Craniotomy HEENT Surgical History: Reports: None Cardiovascular Surgical History: Reports: None Respiratory Surgical History: Reports: None GI Surgical History: Reports: Cholecystectomy Male Surgical History: Reports: None Endocrine Surgical History: Reports: None Neurological Surgical History: Reports: Other (See Below) Other Neurological Surgeries/Procedures: craniotomy Musculoskeletal Surgical History: Reports: Knee Replacement Oncologic Surgical History: Reports: None Dermatological Surgical History: Reports: None Social & Family History - Tobacco Use Smoking Status *Q: Never Smoker - Caffeine Use Caffeine Use: Reports: Coffee - Recreational Drug Use Recreational Drug Use: No - Living Situation & Occupation Living situation: Reports: Occupation: Retired ED ROS GENERAL - Review of Systems Review Of Systems: See Below Constitutional: Reports: Malaise, Fatigue (Recovering from post left total knee surgery.). Denies: Fever, Chills HEENT: Reports: Glasses, Hearing Loss (Mild hearing loss. Is wearing hearing aids) Respiratory: Reports: Shortness of Breath, Cough, Sputum (Rare cough). Denies: Wheezing, Pleuritic Chest Pain Cardiovascular: Reports: Blood Pressure Problem, Dyspnea on Exertion (Left lower extremity since surgery), Edema. Denies: Chest Pain (. Sputum production) , Claudication, Lightheadedness, Orthopnea (Chronic hypertension), Palpitations ( over the last 2 weeks associated with upper respiratory tract infection as well), PND, Syncope, Other Endocrine: Reports: Fatigue GI/Abdominal: Reports: Constipation (Sinus issues with constipation special with pain medication) : Reports: Frequency, Other (Known BPH. Usually nocturia 3) Musculoskeletal: Reports: Back Pain, Joint Pain (Recovering from left total knee replacement surgery October 20, 2018. The right was replaced in February 2018) Skin: Reports: No Symptoms Neurological: Reports: Other (Has some early signs of dementia with impaired short-term memory) Psychiatric: Reports: No Symptoms Hematologic/Lymphatic: Reports: No Symptoms ED EXAM, GENERAL - Physical Exam Exam: See Below Exam Limited By: No Limitations General Appearance: Alert, WD/WN, Other (Mildly hard of hearing. Vital signs reveal BP 150/93 with respect rate of 16 and a pulse ox of 98% on room air.) Eye Exam: Bilateral Eye: Normal Inspection Throat/Mouth: Normal Lips, Normal Oropharynx Head: Atraumatic, Normocephalic Neck: Normal Inspection, Supple, Non-Tender, Full Range of Motion. No: Lymphadenopathy (L), Lymphadenopathy (R) Respiratory/Chest: No Accessory Muscle Use, Chest Non-Tender, Rales (Fine rales both lower lungs basis.). No: Lungs Clear, Normal Breath Sounds Cardiovascular: Regular Rate, Rhythm, No Murmur, No Rub. No: No Edema, No Gallop Peripheral Pulses: 1+: Posterior Tibial (L), Dorsalis Pedis (L), 2+: Posterior Tibial (R), Dorsalis Pedis (R) GI/Abdominal: Normal Bowel Sounds, Soft, Non-Tender, No Organomegaly, Other ( Mildly obese) Back Exam: Normal Inspection, Full Range of Motion. No: CVA Tenderness (L), CVA Tenderness (R) Extremities: Other (The left lower extremity has mild pitting edema from knee to ankle. The surgical wound of the knee is healing adequately with no evidence of infection. The joint itself remains very warm to palpation.) Neurological: Alert, Oriented, CN II-XII Intact, Normal Cognition, Other (Walks with aid of a walker.). No: Normal Gait Skin Exam: Warm, Dry, Intact, Normal Color, No Rash EKG INTERPRETATION EKG Date: 12/26/18 Time: 12:20 Rhythm: NSR Rate (Beats/Min): 64 Chalmers: Normal P-Wave: Present QRS: Other (There is a nonspecific intraventricular conduction delay. Decreased voltage limb leads.) ST-T: Depressed (There is slight ST segment depression in V3 V4 and V5. T-wave inversion in 3 and flattening in aVF nonspecific findings. Do not rule out a mild non-STEMI. This could also represent a repolarization abnormality) QT: Normal EKG Interpretation Comments: Abnormal ECG Course - Vital Signs Last Recorded V/S: Last Vital Signs Temp 36.3 C 12/26/18 12:14 Pulse 67 12/26/18 12:14 Resp 16 12/26/18 12:14 BP 150/93 H 12/26/18 12:14 Pulse Ox 98 12/26/18 12:14 - Orders/Labs/Meds Orders: Active Orders 24 hr Category Date Time Status EKG Documentation Completion [RC] STAT Care 12/26/18 12:27 Active CBC W/O DIFF,HEMOGRAM [HEME] MOTH@0700 Lab 12/29/18 07:00 Ordered CBC W/O DIFF,HEMOGRAM [HEME] MOTH@0700 Lab 01/01/19 07:00 Ordered CBC W/O DIFF,HEMOGRAM [HEME] MOTH@0700 Lab 01/05/19 07:00 Ordered CBC W/O DIFF,HEMOGRAM [HEME] MOTH@0700 Lab 01/08/19 07:00 Ordered CBC W/O DIFF,HEMOGRAM [HEME] MOTH@0700 Lab 01/12/19 07:00 Ordered CBC W/O DIFF,HEMOGRAM [HEME] MOTH@0700 Lab 01/15/19 07:00 Ordered Heparin Sodium/D5W [Heparin 25,000 Units in D5W 500 ML] Med 12/26/18 14:15 Ordered 25,000 units in 500 ml IV ASDIRECTED Sodium Chloride 0.9% [Normal Saline] 100 ml Med 12/26/18 13:00 Active IV ASDIRECTED Medication Orders Sodium Chloride (Normal Saline) 100 mls @ 60 mls/hr IV ASDIRECTED MARY Last Admin: 12/26/18 13:22 Dose: 60 mls/hr Heparin Sodium/Dextrose (Heparin 25,000 Units In D5w 500 Ml) 25,000 units in 500 mls @ 20 mls/hr IV ASDIRECTED MARY Last Admin: 12/26/18 14:09 Dose: 1,000 units/hr, 20 mls/hr Labs: Laboratory Tests 12/26/18 12/26/18 12/26/18 Range/Units 12:47 12:47 12:47 WBC 8.01 (4.23-9.07) K/mm3 RBC 4.73 (4.63-6.08) M/mm3 Hgb 13.8 (13.7-17.5) gm/L Hct 43.2 (40.1-51.0) % MCV 91.3 (79.0-92.2) fl MCH 29.2 (25.7-32.2) pg MCHC 31.9 L (32.2-35.5) g/dl RDW Std Deviation 44.5 H (35.1-43.9) fL Plt Count 189 (163-337) K/mm3 MPV 10.2 (9.4-12.3) fl Neutrophils % (Manual) 69 H (40-60) % Band Neutrophils % 0 (0-10) % Lymphocytes % (Manual) 27 (20-40) % Atypical Lymphs % 0 % Monocytes % (Manual) 2 (2-10) % Eosinophils % (Manual) 1 (0.8-7.0) % Basophils % (Manual) 1 (0.2-1.2) Platelet Estimate Adequate RBC Morph Comment Normal PT 11.1 (9.5-12.1) SECONDS INR 1.02 APTT 28 (24-31) SECONDS D-Dimer, Quantitative 1.56 H (0.19-0.50) mg/L Sodium 144 (136-145) mEq/L Potassium 4.3 (3.5-5.1) mEq/L Chloride 108 H (98-107) mEq/L Carbon Dioxide 25 (21-32) mEq/L Anion Gap 15.3 H (5-15) BUN 20 H (7-18) mg/dL Creatinine 0.7 (0.7-1.3) mg/dL Est Cr Clr Drug Dosing 86.90 mL/min Estimated GFR (MDRD) > 60 (>60) mL/min BUN/Creatinine Ratio 28.6 H (14-18) Glucose 89 (83-115) mg/dL Calcium 9.2 (8.5-10.1) mg/dL Total Bilirubin 0.7 (0.2-1.0) mg/dL AST 13 L (15-37) U/L ALT 25 (16-63) U/L Alkaline Phosphatase 97 (46-116) U/L Lactate Dehydrogenase (85-227) U/L CK-MB (CK-2) 3.8 H (0-3.6) ng/ml Troponin I (0.00-0.056) ng/mL C-Reactive Protein < 0.2 (<1.0) mg/dL NT-Pro-B Natriuret Pep (0-450) pg/mL Total Protein 6.7 (6.4-8.2) g/dl Albumin 3.4 (3.4-5.0) g/dl Globulin 3.3 gm/dL Albumin/Globulin Ratio 1.0 (1-2) 12/26/18 12/26/18 12/26/18 Range/Units 12:47 12:47 12:47 WBC (4.23-9.07) K/mm3 RBC (4.63-6.08) M/mm3 Hgb (13.7-17.5) gm/L Hct (40.1-51.0) % MCV (79.0-92.2) fl MCH (25.7-32.2) pg MCHC (32.2-35.5) g/dl RDW Std Deviation (35.1-43.9) fL Plt Count (163-337) K/mm3 MPV (9.4-12.3) fl Neutrophils % (Manual) (40-60) % Band Neutrophils % (0-10) % Lymphocytes % (Manual) (20-40) % Atypical Lymphs % % Monocytes % (Manual) (2-10) % Eosinophils % (Manual) (0.8-7.0) % Basophils % (Manual) (0.2-1.2) Platelet Estimate RBC Morph Comment PT (9.5-12.1) SECONDS INR APTT (24-31) SECONDS D-Dimer, Quantitative (0.19-0.50) mg/L Sodium (136-145) mEq/L Potassium (3.5-5.1) mEq/L Chloride (98-107) mEq/L Carbon Dioxide (21-32) mEq/L Anion Gap (5-15) BUN (7-18) mg/dL Creatinine (0.7-1.3) mg/dL Est Cr Clr Drug Dosing mL/min Estimated GFR (MDRD) (>60) mL/min BUN/Creatinine Ratio (14-18) Glucose (83-115) mg/dL Calcium (8.5-10.1) mg/dL Total Bilirubin (0.2-1.0) mg/dL AST (15-37) U/L ALT (16-63) U/L Alkaline Phosphatase (46-116) U/L Lactate Dehydrogenase 261 H (85-227) U/L CK-MB (CK-2) (0-3.6) ng/ml Troponin I 0.436 H* (0.00-0.056) ng/mL C-Reactive Protein (<1.0) mg/dL NT-Pro-B Natriuret Pep 1052 H (0-450) pg/mL Total Protein (6.4-8.2) g/dl Albumin (3.4-5.0) g/dl Globulin gm/dL Albumin/Globulin Ratio (1-2) Meds: Medications Generic Name Dose Route Start Last Admin Trade Name Freq PRN Reason Stop Dose Admin Sodium Chloride 100 mls @ 60 mls/hr 12/26/18 13:00 12/26/18 13:22 Normal Saline IV 60 mls/hr ASDIRECTED MARY Administration Heparin Sodium/Dextrose 25,000 units in 500 mls @ 20 mls/hr 12/26/18 14:15 14:09 Heparin 25,000 Units In D5w 500 Ml IV 1,000 units/hr ASDIRECTED MARY 20 mls/hr Administration 1,000 UNITS/HR Discontinued Medications Generic Name Dose Route Start Last Admin Trade Name Billy PRN Reason Stop Dose Admin Aspirin 324 mg 12/26/18 12:52 12/26/18 12:56 Aspirin PO 12/26/18 12:53 324 mg ONETIME ONE Administration Furosemide 40 mg 12/26/18 13:30 12/26/18 13:40 Lasix IVPUSH 12/26/18 13:31 40 mg NOW ONE Administration Heparin Sodium (Porcine) 5,000 units 12/26/18 14:03 12/26/18 14:09 Heparin Sodium IVPUSH 12/26/18 14:04 5,000 units ONETIME ONE Administration Iopamidol 100 ml 12/26/18 12:52 12/26/18 13:22 Isovue-370 (76%) IVPUSH 12/26/18 12:53 100 ml ONETIME ONE Administration Sodium Chloride 10 ml 12/26/18 12:52 12/26/18 12:58 Saline Flush FLUSH 12/26/18 12:53 10 ml ONETIME ONE Administration - Radiology Interpretation Free Text/Narrative:: 78-year-old male presents to the ED at the request of his primary care physician Dr. Ivy. Been complaining of increasing shortness of breath over the last week or 2. This is been complicated by an upper respiratory tract infection for which she feels he is recovering from. Sputum is whitish in color and cough is less now than it was a week ago. No associated fever chills. No orthopnea or PND. Patient had a left total knee replacement on October 20, 2018 and is recovering from the surgery. On examination today Dr. Torres appreciated some ECG changes and therefore lab work was completed. Chest x-ray was reported to be normal. Lab work revealed an elevated d-dimer of 1.94 and a troponin of 0.338. These labs were done at approximately 1055 hrs. this morning patient denies any chest pain orthopnea or PND. Examination I can hear fine crackles at both lung bases. G-tube knee shows some mild ST segment depression V3 V4 V5 which could represent repolarization abnormality but could also represent very mild non-STEMI changes. Therefore we need to differentiate whether or not the patient could've had a pulmonary embolism related to his recent surgery on his left lower extremity which caused his troponin to become elevated. Versus a primary cardiac event. Landed on ultrasound of his lower extremity on the left side will be performed. His creatinine came back at 0.87 with a GFR greater than 60. He will therefore be a candidate for CT pulmonary angiogram. BMP magnesium and a few other labs were also ordered. - Re-Assessments/Exams Free Text/Narrative Re-Assessment/Exam: 12/26/18 13:01 Chest x-ray done portably here reveals mild cardiomegaly. There is a slight tortuous paucity of the thoracic aorta. The lungs are clear costophrenic angles are normal no pneumothorax no pulmonary infiltrates 12/26/18 13:35 Part of the labs are back. Total white count is 8.01 with 69% neutrophils and no bands hemoglobin is 13.8 with hematocrit of 43.2 platelet counts 189,000. PT is 11.1 with an INR of 1.02. PTT is 28 d-dimer is 1.56. BNP is 1052. Patient's IV has been running at 60 mils per hour. I will give him Lasix [address] pulmonary angiogram is pending. Repeat troponin has been ordered for 1330 hrs. top or ultrasound of his left lower extremity was negative for any DVT. 12/26/18 14;00: Repeat troponin did come back elevated at 0.433. This reveals a man for a non-STEMI. He remains chest pain-free. He will now therefore receive heparin 5000 unit bolus and then [address] pulmonary angiogram is negative for PE. He does have some scattered pulmonary nodules within both sides of the chest which were noted on previous CT. These are felt to be benign. heart is mildly enlarged. Findings were discussed with his and son in the room and they are understanding of the diagnosis. They also understand the need for transport to cardiology service is not available here. He will therefore be transferred to [facility] in [facility]. 12/26/18 14:25 Labs reveal a total white count of 8.01 with 69% neutrophils and no bands reported. Hemoglobin is good at 13.8 with hematocrit of 43.2. Bili Was normal 189,000. PT was 11.1 with an INR 1.02. PTT is 28. D-dimer was 1.56 in our lab. Sodium 144 with potassium of 4.3. Chloride 108 with a bicarbonate of 25. Anion gap is 15.3. BUN is 20 with a creatinine of 0.7. GFR is greater than 60. Glucose is 89 with a calcium of 9.2. Liver function is normal. Lactate dehydrogenase is mildly elevated at 261. CK-MB fraction of 3.8 mildly elevated troponin I is now 0.436 compared to the initial value obtained at [facility] at 0.338 C-reactive protein is less than 0.2. BNP is 1052 total protein is 6.7 albumin fraction is 3.4. I spoken with Dr. Alta oliveira at [facility] in [place] and he is accepted care. She'll be transported to that facility.per ground ambulance. Tentatively he will be admitted to the telemetry unit unless he develops chest pain of which he has had none. Departure - Departure Time of Disposition: 14:26 Disposition: DC/Tfer to Acute Hospital 02 Condition: Fair Clinical Impression: Acute myocardial infarction of anterior wall - Discharge Information *PRESCRIPTION DRUG MONITORING PROGRAM REVIEWED*: Not Applicable *COPY OF PRESCRIPTION DRUG MONITORING REPORT IN PATIENT ARMANDO: Not Applicable Referrals: Milton King MD [Primary Care Provider] - Forms: ED Department Discharge Additional Instructions: Patient transferred to [facility] in [place] with Dr. Alta oliveira accepting care. - My Orders Last 24 Hours: My Active Orders 12/26/18 12:27 EKG Documentation Completion [RC] STAT 12/26/18 13:00 Sodium Chloride 0.9% [Normal Saline] 100 ml IV ASDIRECTED 12/26/18 14:15 Heparin Sodium/D5W [Heparin 25,000 Units in D5W 500 ML] 25,000 units in 500 ml IV ASDIRECTED 12/29/18 07:00 CBC W/O DIFF,HEMOGRAM [HEME] MOTH@69901/01/19 07:00 CBC W/O DIFF,HEMOGRAM [HEME] MOTH@69901/05/19 07:00 CBC W/O DIFF,HEMOGRAM [HEME] MOTH@69901/08/19 07:00 CBC W/O DIFF,HEMOGRAM [HEME] MOTH@69901/12/19 07:00 CBC W/O DIFF,HEMOGRAM [HEME] MOTH@69901/15/19 07:00 CBC W/O DIFF,HEMOGRAM [HEME] MOTH@699 - Assessment/Plan Last 24 Hours: My Active Orders 12/26/18 12:27 EKG Documentation Completion [RC] STAT 12/26/18 13:00 Sodium Chloride 0.9% [Normal Saline] 100 ml IV ASDIRECTED 12/26/18 14:15 Heparin Sodium/D5W [Heparin 25,000 Units in D5W 500 ML] 25,000 units in 500 ml IV ASDIRECTED 12/29/18 07:00 CBC W/O DIFF,HEMOGRAM [HEME] MOTH@69901/01/19 07:00 CBC W/O DIFF,HEMOGRAM [HEME] MOTH@69901/05/19 07:00 CBC W/O DIFF,HEMOGRAM [HEME] MOTH@69901/08/19 07:00 CBC W/O DIFF,HEMOGRAM [HEME] MOTH@69901/12/19 07:00 CBC W/O DIFF,HEMOGRAM [HEME] MOTH@69901/15/19 07:00 CBC W/O DIFF,HEMOGRAM [HEME] MOTH@699
[2018-12-26] MEDS ORDERED: Sodium Chloride 0.9% 10 ML Syringe FLUSH ONE (12:52)
[2018-12-26] MEDS ORDERED: Aspirin 81 MG Tab.Chew PO ONE (12:52)
[2018-12-26] MEDS ORDERED: Iopamidol 755 Mg/ML 100 ML Bottle IVPUSH ONE (12:52)
[2018-12-26] MEDS ORDERED: Sodium Chloride 0.9% 100 ML IV SCH (13:00)
--- NOTE | 2018-12-26 13:23 | CR ---
Chest: Portable view of the chest was obtained. Comparison: Prior chest x-ray of 01/21/15. Heart is slightly enlarged. Tortuous thoracic aorta is seen. Mild widening of the upper mediastinum is seen which is stable. Lungs are clear with no acute parenchymal change. Bony structures are grossly intact. Impression: 1. Findings as noted above. Nothing acute is seen. No significant interval change from previous exam. Diagnostic code #2
[2018-12-26] MEDS ORDERED: Furosemide 40 MG/4 ML VIAL IVPUSH ONE (13:30)
--- NOTE | 2018-12-26 13:38 | US ---
Left lower extremity deep venous ultrasound: Duplex and color flow imaging was obtained of the right common femoral, proximal greater saphenous, superficial femoral, popliteal, posterior tibial and peroneal veins. Right common femoral vein was also evaluated. Findings: Posterior tibial and peroneal veins not optimally seen for compression but appear to have normal phasic flow and augmentation. Other veins show normal compression, phasic flow and augmentation. Impression: 1. Slightly limited visualization of the posterior tibial and peroneal veins. 2. No findings of deep venous thrombosis otherwise are seen within the left lower extremity or within the right common femoral vein. Diagnostic code #2
[2018-12-26] MEDS ORDERED: Heparin Sodium 5,000 Units/ML Vial IVPUSH ONE (14:03)
[2018-12-26] MEDS ORDERED: Heparin Sodium/D5W 25,000 UNITS/500 ML BAG IV SCH (14:15)
--- NOTE | 2018-12-26 14:19 | CT ---
CT chest Technique: Multiple axial sections were obtained through the chest. Intravenous contrast was utilized. Study performed as a pulmonary angiogram protocol. Comparison: Prior chest CT study of 12/21/09. Findings: Small portion of the visualized upper abdominal structures show previous cholecystectomy. No pericardial thickening is seen. Coronary artery calcification is seen which is fairly severe. No aortic aneurysm is seen. Atherosclerotic calcification is noted within the aorta. Pulmonary arteries are well-opacified. No filling defects are seen to indicate pulmonary embolism. Scattered pulmonary nodules are noted within both sides of the chest. These are felt to be seen on previous exam and therefore benign. No acute parenchymal densities are seen. Heart is mildly enlarged. Bone window settings were reviewed which show scattered degenerative endplate spurring within the mid and lower thoracic spine. No acute osseous abnormality is seen. Impression: 1. Incidental findings as noted above. 2. No findings of pulmonary embolism. Nothing acute is appreciated on CT study of the chest performed as a pulmonary angiogram protocol. Diagnostic code #2
== END 2018-12-26 14:50 ==
LOC: JD.ED 12:11
DX: I21.09 ST elevation (STEMI) myocardial infarction involving other coronary artery of anterior wall (principal); E78.00 Pure hypercholesterolemia, unspecified; I10 Essential (primary) hypertension; E11.9 Type 2 diabetes mellitus without complications; E03.9 Hypothyroidism, unspecified; Z79.899 Other long term (current) drug therapy; Z79.82 Long term (current) use of aspirin
CPT/HCPCS: 36415; 71045; 71275; 80053; 82553; 83615; 83880; 84484; 85007; 85027; 85379; 85610; 85730; 86140; 93005; 93971; 96365; 96375; 99285; A9270; J1644; J1940; J7030; Q9967

== ENCOUNTER 2019-11-09 11:04 | Inpatient (IN) | payer MEDICARE, OTHER ==
[2019-11-09] MEDS ORDERED: Sodium Chloride 0.9% 10 ML Syringe FLUSH PRN (11:40)
--- NOTE | 2019-11-09 11:44 | EDM.PDOC ---
ED HPI GENERAL MEDICAL PROBLEM - General Chief Complaint: Lower Extremity Injury/Pain Stated Complaint: R LEG PAIN Time Seen by Provider: 11/09/19 11:37 Source of Information: Reports: Patient History Limitations: Reports: No Limitations - History of Present Illness INITIAL COMMENTS - FREE TEXT/NARRATIVE: Patient's unfortunate 79-year-old male who presents emergency Department today with complaint of right lower extremity. Redness. Patient reports that symptoms started last night where he was chilled and just felt like he could not get warm and then today he noticed redness to his leg which was very hot so he came to the emergency department for evaluation. Patient has erythema from the medial malleolus that extends up the anterior surface of the tibia and laterally to the proximal tibia, distal neurovascular is intact patient complains of pain to this area no known trauma Right Lower Leg Pain Score (Numeric/FACES): 6 - Related Data Allergies Allergy/AdvReac Type Severity Reaction Status Date / Time No Known Allergies Allergy Verified 11/09/19 11:22 Home Meds: Home Meds Metoprolol Tartrate 25 mg PO BID 01/21/15 [History] atorvaSTATin Calcium [Atorvastatin Calcium] 40 mg PO DAILY 01/21/15 [History] Levothyroxine [Synthroid] 50 mcg PO DAILY 10/17/18 [History] Sennosides [Senna] 8.6 mg PO BID PRN tablet 10/20/18 [Rx] Aspirin [[place]ude Aspirin] 81 mg PO DAILY 02/17/19 [History] Past Medical History HEENT History: Reports: Hard of Hearing, Impaired Vision, Otitis Media, Sinusitis, Other (See Below) Other HEENT History: has glasses, hearing aids, pharyngitis Cardiovascular History: Reports: High Cholesterol, Hypertension Respiratory History: Reports: SOB, Other (See Below) Other Respiratory History: URI, bronchitis, pulmonary nodules, pneumonia Gastrointestinal History: Reports: None Genitourinary History: Reports: BPH, Other (See Below) Other Genitourinary History: prostate hypertrophy 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 Musculoskeletal History: Reports: Arthritis, Osteoarthritis, Other (See Below) Other Musculoskeletal History: lower leg arthropathy Neurological History: Reports: Other (See Below) Other Neuro History: memory loss, trigeminal neuralgia with surgical repair Psychiatric History: Reports: Other (See Below) Other Psychiatric History: malaise, fatigue Endocrine/Metabolic History: Reports: Diabetes, Type II, Hypothyroidism Hematologic History: Reports: None Immunologic History: Reports: None Oncologic (Cancer) History: Reports: Basal Cell Carcinoma Dermatologic History: Reports: Other (See Below) Other Dermatologic History: actinic keratosis, cellulitis and abcess, frostbite to feet, basal cell ca - Past Surgical History Head Surgeries/Procedures: Reports: Craniotomy HEENT Surgical History: Reports: None Cardiovascular Surgical History: Reports: None Respiratory Surgical History: Reports: None GI Surgical History: Reports: Cholecystectomy Male Surgical History: Reports: None Endocrine Surgical History: Reports: None Neurological Surgical History: Reports: Other (See Below) Other Neurological Surgeries/Procedures: craniotomy Musculoskeletal Surgical History: Reports: Knee Replacement Oncologic Surgical History: Reports: None Dermatological Surgical History: Reports: None Social & Family History - Tobacco Use Smoking Status *Q: Never Smoker - Caffeine Use Caffeine Use: Reports: Coffee - Recreational Drug Use Recreational Drug Use: No - Living Situation & Occupation Living situation: Reports: Occupation: Retired Review of Systems - Review of Systems Review Of Systems: See Below Constitutional: Reports: Chills. Denies: Fever Musculoskeletal: Reports: Leg Pain, Other (erythema) ED EXAM, GENERAL - Physical Exam Exam: See Below Exam Limited By: No Limitations General Appearance: Alert, WD/WN, Mild Distress Nose: Normal Inspection Throat/Mouth: Normal Inspection, Normal Lips, Normal Teeth, Normal Gums, Normal Oropharynx, Normal Voice, No Airway Compromise Head: Atraumatic, Normocephalic Neck: Normal Inspection, Supple, Non-Tender, Full Range of Motion Respiratory/Chest: No Respiratory Distress, Lungs Clear, Normal Breath Sounds, No Accessory Muscle Use, Chest Non-Tender Cardiovascular: Normal Peripheral Pulses, Regular Rate, Rhythm, No Edema, No Gallop, No JVD, No Murmur, No Rub GI/Abdominal: Normal Bowel Sounds, Soft, Non-Tender, No Organomegaly, No Distention, No Abnormal Bruit, No Mass Back Exam: Normal Inspection, Full Range of Motion, NT Extremities: Other (Moderate erythema starts the medial malleolus extends over the anterior surface of the tibia to the proximal fib mild tenderness heat distal neurovascular is intact) Neurological: Alert, Other (hard of hearing) Skin Exam: Warm, Dry Course - Vital Signs Last Recorded V/S: Last Vital Signs Temp 98.2 F 11/09/19 11:20 Pulse 86 11/09/19 11:20 Resp 16 11/09/19 11:20 BP Pulse Ox 95 11/09/19 11:20 - Orders/Labs/Meds Orders: Active Orders 24 hr Category Date Time Status CULTURE BLOOD [BC] Stat Lab 11/09/19 14:10 Received CULTURE BLOOD [BC] Stat Lab 11/09/19 14:49 Received UA RFX REINIER AND CULT IF INDIC [URIN] Stat Lab 11/09/19 11:40 Ordered Sodium Chloride 0.9% [Normal Saline] 1,000 ml Med 11/09/19 15:07 Ordered IV ONETIME Sodium Chloride 0.9% [Saline Flush] Med 11/09/19 11:40 Active 10 ml FLUSH ASDIRECTED PRN Blood Culture x2 Reflex Set [OM.PC] Stat Oth 11/09/19 13:43 Ordered Saline Lock Insert [OM.PC] Stat Oth 11/09/19 11:40 Ordered Medication Orders Sodium Chloride (Normal Saline) 1,000 mls @ 1,000 mls/hr IV ONETIME ONE Stop: 11/09/19 16:06 Sodium Chloride (Saline Flush) 10 ml FLUSH ASDIRECTED PRN PRN Reason: Keep Vein Open Last Admin: 11/09/19 14:11 Dose: 10 ml Labs: Laboratory Tests 11/09/19 11/09/19 11/09/19 Range/Units 11:56 11:56 14:10 WBC 17.41 H (4.23-9.07) K/mm3 RBC 4.68 (4.63-6.08) M/mm3 Hgb 14.7 (13.7-17.5) gm/dl Hct 43.7 (40.1-51.0) % MCV 93.4 H (79.0-92.2) fl MCH 31.4 (25.7-32.2) pg MCHC 33.6 (32.2-35.5) g/dl RDW Std Deviation 44.3 H (35.1-43.9) fL Plt Count 144 L (163-337) K/mm3 MPV 10.1 (9.4-12.3) fl Neut % (Auto) 91.2 H (34.0-67.9) % Lymph % (Auto) 3.2 L (21.8-53.1) % Craig % (Auto) 5.1 L (5.3-12.2) % Eos % (Auto) 0 L (0.8-7.0) Baso % (Auto) 0.2 (0.1-1.2) % Neut # (Auto) 15.88 H (1.78-5.38) K/mm3 Lymph # (Auto) 0.55 L (1.32-3.57) K/mm3 Craig # (Auto) 0.89 H (0.30-0.82) K/mm3 Eos # (Auto) 0.00 L (0.04-0.54) K/mm3 Baso # (Auto) 0.03 (0.01-0.08) K/mm3 Manual Slide Review Abnormal smear Sodium 143 (136-145) mEq/L Potassium 4.2 (3.5-5.1) mEq/L Chloride 106 (98-107) mEq/L Carbon Dioxide 24 (21-32) mEq/L Anion Gap 17.2 H (5-15) BUN 23 H (7-18) mg/dL Creatinine 1.3 (0.7-1.3) mg/dL Est Cr Clr Drug Dosing 46.01 mL/min Estimated GFR (MDRD) 53 (>60) mL/min BUN/Creatinine Ratio 17.7 (14-18) Glucose 144 H (83-115) mg/dL Lactic Acid 3.2 H* (0.4-2.0) mmol/L Calcium 8.9 (8.5-10.1) mg/dL Total Bilirubin 1.3 H (0.2-1.0) mg/dL AST 7 L (15-37) U/L ALT 28 (16-63) U/L Alkaline Phosphatase 64 (46-116) U/L Total Protein 6.7 (6.4-8.2) g/dl Albumin 3.4 (3.4-5.0) g/dl Globulin 3.3 gm/dL Albumin/Globulin Ratio 1.0 (1-2) Meds: Medications Generic Name Dose Route Start Last Admin Trade Name Freq PRN Reason Stop Dose Admin Sodium Chloride 1,000 mls @ 1,000 mls/hr 11/09/19 15:07 Normal Saline IV 11/09/19 16:06 ONETIME ONE Sodium Chloride 10 ml 11/09/19 11:40 11/09/19 14:11 Saline Flush FLUSH 10 ml ASDIRECTED PRN Administration Keep Vein Open Discontinued Medications Generic Name Dose Route Start Last Admin Trade Name Freq PRN Reason Stop Dose Admin Piperacillin Sod/Tazobactam 100 mls @ 200 mls/hr 11/09/19 14:19 11/09/19 14: 32 Sod 3.375 gm/ Sodium Chloride IV 11/09/19 14:48 200 mls/hr ONETIME ONE Administration - Re-Assessments/Exams Free Text/Narrative Re-Assessment/Exam: 11/09/19 13:40 Venous ultrasound, right lower extremity, "impression: #1 no evidence of DVT within the right lower [place]." Free Text/Narrative Re-Assessment/Exam: 11/09/19 15:[address] Meeks who accepts patient as inpatient to the [facility] medical surgical floor Departure - Departure Time of Disposition: 15:10 Disposition: Admitted As Inpatient 64 Clinical Impression: Cellulitis of right lower extremity Sepsis Qualifiers: Sepsis type: sepsis due to unspecified organism Sepsis acute organ dysfunction status: without acute organ dysfunction Qualified Code(s): A41.9 - Sepsis, unspecified organism - Discharge Information Referrals: Milton King MD [Primary Care Provider] - Forms: ED Department Discharge Sepsis Event Note - Evaluation Sepsis Screening Result: No Definite Risk - Focused Exam Vital Signs: Vital Signs Temp Pulse Resp Pulse Ox 11/09/19 11:20 98.2 F 86 16 95 Date Exam was Performed: 11/09/19 Time Exam was Performed: 15:08 - My Orders Last 24 Hours: My Active Orders 11/09/19 11:40 UA RFX REINIER AND CULT IF INDIC [URIN] Stat Sodium Chloride 0.9% [Saline Flush] 10 ml FLUSH ASDIRECTED PRN Saline Lock Insert [OM.PC] Stat 11/09/19 13:43 Blood Culture x2 Reflex Set [OM.PC] Stat 11/09/19 14:10 CULTURE BLOOD [BC] Stat 11/09/19 14:49 CULTURE BLOOD [BC] Stat 11/09/19 15:07 Sodium Chloride 0.9% [Normal Saline] 1,000 ml IV ONETIME - Assessment/Plan Last 24 Hours: My Active Orders 11/09/19 11:40 UA RFX REINIER AND CULT IF INDIC [URIN] Stat Sodium Chloride 0.9% [Saline Flush] 10 ml FLUSH ASDIRECTED PRN Saline Lock Insert [OM.PC] Stat 11/09/19 13:43 Blood Culture x2 Reflex Set [OM.PC] Stat 11/09/19 14:10 CULTURE BLOOD [BC] Stat 11/09/19 14:49 CULTURE BLOOD [BC] Stat 11/09/19 15:07 Sodium Chloride 0.9% [Normal Saline] 1,000 ml IV ONETIME
--- NOTE | 2019-11-09 13:37 | US ---
Right lower extremity deep venous ultrasound: Duplex and color Doppler evaluation was obtained of the right common femoral, proximal greater saphenous, superficial femoral, popliteal, posterior tibial and peroneal veins. Findings: Normal phasic flow, augmentation and compression is seen. Impression: 1. No evidence of deep venous thrombosis within the right lower extremity. Diagnostic code #1 This report was dictated in Mountain Standard Time
[2019-11-09] MEDS ORDERED: Piperacillin/Tazobactam 3.375 GM in Sodium Chloride 0.9% 100 ML IV ONE (14:19)
[2019-11-09] MEDS ORDERED: Sodium Chloride 0.9% 1,000 ML IV ONE (15:07)
[2019-11-09] MEDS ORDERED: Acetaminophen/HYDROcodone 325-5 MG Tab PO PRN (17:38)
[2019-11-09] MEDS ORDERED: Acetaminophen 325 MG Tab PO PRN (17:38)
[2019-11-09] MEDS ORDERED: Ondansetron 4 MG/2 ML SDV IV PRN (17:38)
--- NOTE | 2019-11-09 17:54 | PCM.HP.2 ---
H&P History of Present Illness - General Date of Service: 11/09/19 Admit Problem/Dx: Admission Diagnosis/Problem Admission Diagnosis/Problem Cellulitis - History of Present Illness Initial Comments - Free Text/Narative: 79-year-old male who with history of hypertension, hyperlipidemia, and hypothyroidism presents to the emergency room with fever, chills, cold shakes since last night. Patient states that approximately 2 weeks ago he felt like he had arthritic pain in his right lower extremity and foot. This morning his foot became hot and painful. Because of the cold chills patient came to the emergency room. Patient denies any trauma to this area. He does have bilateral knee replacements. He denies any headache, blurred vision, chest pain , shortness of breath, abdominal pain, changes in stool or bowel movements. He had a bowel movement this morning. In the emergency room he was found to be afebrile. White count was 17.41, anion gap of 17.2 with a BUN of 23 and a creatinine of 1.3. Lactic acid was 3.2. Glucose was slightly elevated at 144. He was given 1 L normal saline and started on Zosyn. He does state he is currently feeling better. Ultrasound showed no DVT. Right Lower Leg Pain Score (Numeric/FACES): 6 - Related Data Allergies/Adverse Reactions: Allergies Allergy/AdvReac Type Severity Reaction Status Date / Time No Known Allergies Allergy Verified 11/09/19 16:57 Home Medications: Home Meds Metoprolol Tartrate 25 mg PO BID 01/21/15 [History] atorvaSTATin Calcium [Atorvastatin Calcium] 40 mg PO DAILY 01/21/15 [History] Levothyroxine [Synthroid] 50 mcg PO DAILY 10/17/18 [History] Aspirin [[place] Aspirin] 81 mg PO DAILY 02/17/19 [History] Past Medical History HEENT History: Reports: Hard of Hearing, Impaired Vision, Otitis Media, Sinusitis, Other (See Below) Other HEENT History: has glasses, hearing aids, pharyngitis Cardiovascular History: Reports: High Cholesterol, Hypertension Respiratory History: Reports: SOB, Other (See Below) Other Respiratory History: URI, bronchitis, pulmonary nodules, pneumonia Gastrointestinal History: Reports: None Genitourinary History: Reports: BPH, Other (See Below) Other Genitourinary History: prostate hypertrophy 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 Musculoskeletal History: Reports: Arthritis, Osteoarthritis, Other (See Below) Other Musculoskeletal History: lower leg arthropathy Neurological History: Reports: Other (See Below) Other Neuro History: memory loss, trigeminal neuralgia with surgical repair Psychiatric History: Reports: Other (See Below) Other Psychiatric History: malaise, fatigue Endocrine/Metabolic History: Reports: Diabetes, Type II, Hypothyroidism Hematologic History: Reports: None Immunologic History: Reports: None Oncologic (Cancer) History: Reports: Basal Cell Carcinoma Dermatologic History: Reports: Other (See Below) Other Dermatologic History: actinic keratosis, cellulitis and abcess, frostbite to feet, basal cell ca - Past Surgical History Head Surgeries/Procedures: Reports: Craniotomy HEENT Surgical History: Reports: None Cardiovascular Surgical History: Reports: None Respiratory Surgical History: Reports: None GI Surgical History: Reports: Cholecystectomy Male Surgical History: Reports: None Endocrine Surgical History: Reports: None Neurological Surgical History: Reports: Other (See Below) Other Neurological Surgeries/Procedures: craniotomy Musculoskeletal Surgical History: Reports: Knee Replacement Oncologic Surgical History: Reports: None Dermatological Surgical History: Reports: None Social & Family History - Tobacco Use Smoking Status *Q: Never Smoker - Caffeine Use Caffeine Use: Reports: Coffee - Recreational Drug Use Recreational Drug Use: No - Living Situation & Occupation Living situation: Reports: Occupation: Retired H&P Review of Systems - Review of Systems: Review Of Systems: Comprehensive ROS is negative, except as noted in HPI. Exam - Exam Exam: See Below - Vital Signs Vital Signs: Last Vital Signs Temp 98.2 F 11/09/19 11:20 Pulse 86 11/09/19 11:20 Resp 16 11/09/19 11:20 BP Pulse Ox 95 11/09/19 11:20 Weight: 222 lb - Exam General: Alert, Oriented, 4 HEENT: Conjunctiva Clear, Mucosa Moist & [place]. No: Hearing Intact Neck: Supple, Trachea Midline, 2 Lungs: Clear to Auscultation, Normal Respiratory Effort Cardiovascular: Regular Rate, Regular Rhythm GI/Abdominal Exam: Normal Bowel Sounds, Soft, Non-Tender, No Organomegaly, No Distention, No Abnormal Bruit, No Mass, Pelvis Stable Extremities: Normal Inspection, Normal Range of Motion, Non-Tender Peripheral Pulses: 1+: Posterior Tibial (L), Posterior Tibial (R), Dorsalis Pedis (L), Dorsalis Pedis (R) Skin: Warm, Other (Erythema and tenderness starting at the medial malleolus over the anterior surface of the proximal foot into the anterior toro and up to the infra patella. Most tender along the medial mid tibia. No discharge or drainage.) Neuro Extensive - Motor, Sensory, Reflexes: CN II-XII Intact Psychiatric: Alert, Normal Affect, Normal Mood - Patient Data Lab Results Last 24 hrs: Laboratory Results - last 24 hr 11/09/19 11/09/19 11/09/19 Range/Units 11:56 11:56 14:10 WBC 17.41 H (4.23-9.07) K/mm3 RBC 4.68 (4.63-6.08) M/mm3 Hgb 14.7 (13.7-17.5) gm/dl Hct 43.7 (40.1-51.0) % MCV 93.4 H (79.0-92.2) fl MCH 31.4 (25.7-32.2) pg MCHC 33.6 (32.2-35.5) g/dl RDW Std Deviation 44.3 H (35.1-43.9) fL Plt Count 144 L (163-337) K/mm3 MPV 10.1 (9.4-12.3) fl Neut % (Auto) 91.2 H (34.0-67.9) % Lymph % (Auto) 3.2 L (21.8-53.1) % Cooper % (Auto) 5.1 L (5.3-12.2) % Eos % (Auto) 0 L (0.8-7.0) Baso % (Auto) 0.2 (0.1-1.2) % Neut # (Auto) 15.88 H (1.78-5.38) K/mm3 Lymph # (Auto) 0.55 L (1.32-3.57) K/mm3 Cooper # (Auto) 0.89 H (0.30-0.82) K/mm3 Eos # (Auto) 0.00 L (0.04-0.54) K/mm3 Baso # (Auto) 0.03 (0.01-0.08) K/mm3 Manual Slide Review Abnormal smear Sodium 143 (136-145) mEq/L Potassium 4.2 (3.5-5.1) mEq/L Chloride 106 (98-107) mEq/L Carbon Dioxide 24 (21-32) mEq/L Anion Gap 17.2 H (5-15) BUN 23 H (7-18) mg/dL Creatinine 1.3 (0.7-1.3) mg/dL Est Cr Clr Drug Dosing 46.01 mL/min Estimated GFR (MDRD) 53 (>60) mL/min BUN/Creatinine Ratio 17.7 (14-18) Glucose 144 H (83-115) mg/dL Lactic Acid 3.2 H* (0.4-2.0) mmol/L Calcium 8.9 (8.5-10.1) mg/dL Total Bilirubin 1.3 H (0.2-1.0) mg/dL AST 7 L (15-37) U/L ALT 28 (16-63) U/L Alkaline Phosphatase 64 (46-116) U/L Total Protein 6.7 (6.4-8.2) g/dl Albumin 3.4 (3.4-5.0) g/dl Globulin 3.3 gm/dL Albumin/Globulin Ratio 1.0 (1-2) Result Diagrams: 11/09/19 11:56 11/09/19 11:56 Sepsis Event Note - Evaluation Sepsis Screening Result: No Definite Risk - Focused Exam Vital Signs: Vital Signs Temp Pulse Resp Pulse Ox 11/09/19 11:20 98.2 F 86 16 95 Date Exam was Performed: 11/09/19 Time Exam was Performed: 17:49 Problem List Initiated/Reviewed/Updated: Yes Orders Last 24hrs: Active Orders 24 hr Category Date Time Status Admission Status [Patient Status] [ADT] Routine ADT 11/09/19 15:41 Active Oxygen Therapy [RC] PRN Care 11/09/19 17:39 Ordered Up ad Rebeca [RC] ASDIRECTED Care 11/09/19 17:38 Ordered VTE/DVT Education [RC] PER UNIT ROUTINE Care 11/09/19 17:39 Ordered Vital Signs [RC] Q4H Care 11/09/19 17:39 Ordered Regular Diet [DIET] Diet 11/09/19 Dinner Ordered C-REACTIVE PROTEIN [CHEM] AM Lab 11/10/19 05:11 Ordered C-REACTIVE PROTEIN [CHEM] AM Lab 11/11/19 05:11 Ordered C-REACTIVE PROTEIN [CHEM] AM Lab 11/12/19 05:11 Ordered C-REACTIVE PROTEIN [CHEM] AM Lab 11/13/19 05:11 Ordered CBC WITH AUTO DIFF [HEME] AM Lab 11/10/19 05:11 Ordered CBC WITH AUTO DIFF [HEME] AM Lab 11/11/19 05:11 Ordered CBC WITH AUTO DIFF [HEME] AM Lab 11/12/19 05:11 Ordered CBC WITH AUTO DIFF [HEME] AM Lab 11/13/19 05:11 Ordered COMPREHENSIVE METABOLIC PN,CMP [CHEM] AM Lab 11/10/19 05:11 Ordered COMPREHENSIVE METABOLIC PN,CMP [CHEM] AM Lab 11/11/19 05:11 Ordered COMPREHENSIVE METABOLIC PN,CMP [CHEM] AM Lab 11/12/19 05:11 Ordered COMPREHENSIVE METABOLIC PN,CMP [CHEM] AM Lab 11/13/19 05:11 Ordered CULTURE BLOOD [BC] Stat Lab 11/09/19 14:10 Received CULTURE BLOOD [BC] Stat Lab 11/09/19 14:49 Received MAGNESIUM [CHEM] AM Lab 11/10/19 05:11 Ordered MAGNESIUM [CHEM] AM Lab 11/11/19 05:11 Ordered MAGNESIUM [CHEM] AM Lab 11/12/19 05:11 Ordered MAGNESIUM [CHEM] AM Lab 11/13/19 05:11 Ordered TSH [CHEM] AM Lab 11/10/19 05:11 Ordered UA RFX REINIER AND CULT IF INDIC [URIN] Stat Lab 11/09/19 11:40 Ordered Acetaminophen [Tylenol] Med 11/09/19 17:38 Ordered 650 mg PO Q4H PRN Acetaminophen/HYDROcodone [[place]agle 325-5 MG] Med 11/09/19 17:38 Ordered 1 tab PO Q4H PRN Aspirin Med 11/10/19 09:00 Ordered 81 mg PO DAILY Enoxaparin [Lovenox] Med 11/10/19 09:00 Ordered 40 mg SUBCUT DAILY Levothyroxine [Synthroid] Med 11/10/19 09:00 Ordered 50 mcg PO DAILY Metoprolol Tartrate [Lopressor] Med 11/09/19 21:00 Ordered 25 mg PO BID Ondansetron [Zofran] Med 11/09/19 17:38 Ordered 4 mg IV Q4H PRN Pharmacy to Dose - Vancomycin Med 11/09/19 16:45 Active 0 dose .XX ASDIRECTED PRN Sodium Chloride 0.9% [Saline Flush] Med 11/09/19 11:40 Active 10 ml FLUSH ASDIRECTED PRN Vancomycin 1 gm Med 11/10/19 12:00 Active Vancomycin 250 mg Sodium Chloride 0.9% [Normal Saline] 250 ml IV Q18H Vancomycin 1 gm Med 11/09/19 18:00 Active Vancomycin 500 mg Sodium Chloride 0.9% [Normal Saline] 500 ml IV ONETIME atorvaSTATin Med 11/10/19 09:00 Ordered 40 mg PO DAILY Blood Culture x2 Reflex Set [OM.PC] Stat Oth 11/09/19 13:43 Ordered Saline Lock Insert [OM.PC] Stat Oth 11/09/19 11:40 Ordered Resuscitation Status Routine Resus Stat 11/09/19 17:38 Ordered Medication Orders Acetaminophen (Tylenol) 650 mg PO Q4H PRN PRN Reason: Pain (Mild 1-3)/fever Hydrocodone Bitart/Acetaminophen ([place] 325-5 Mg) 1 tab PO Q4H PRN PRN Reason: Pain (moderate 4-6) Aspirin (Aspirin) 81 mg PO DAILY [facility] Enoxaparin Sodium (Lovenox) 40 mg SUBCUT DAILY [facility] Vancomycin HCl 1 gm/Vancomycin HCl 500 mg/ Sodium Chloride 500 mls @ 250 mls/ hr IV ONETIME ONE Stop: 11/09/19 19:59 Vancomycin HCl 1 gm/Vancomycin HCl 250 mg/ Sodium Chloride 250 mls @ 165 mls/ hr IV Q18H [facility] Levothyroxine Sodium (Synthroid) 50 mcg PO DAILY [facility] Metoprolol Tartrate (Lopressor) 25 mg PO BID [facility] Non-Formulary Medication (Atorvastatin) 40 mg PO DAILY [facility] Ondansetron HCl (Zofran) 4 mg IV Q4H PRN PRN Reason: Nausea/Vomiting Sodium Chloride (Saline Flush) 10 ml FLUSH ASDIRECTED PRN PRN Reason: Keep Vein Open Last Admin: 11/09/19 14:11 Dose: 10 ml Vancomycin HCl (Pharmacy To Dose - Vancomycin) 0 dose .XX ASDIRECTED PRN PRN Reason: RX TO DOSE VANCOMYCIN Assessment/Plan Comment:: Assessment * Right lower extremity cellulitis with elevated lactic acid and anion gap * Area of erythema, warmth, and tenderness along the right anterior toro into the foot * WBC 17.41, anion gap 17.2, lactic acid 3.2 * Blood cultures done in the emergency room * Zosyn given in the emergency room * Patient given 1 L bolus of normal saline in the emergency room * History of bilateral knee replacement * History of hypertension, hyperlipidemia, and hypothyroidism Plan * Admit to medical floor for IV antibiotics * Vancomycin pharmacy to dose * Outlined area of erythema * Blood cultures pending * Follow CBC, CMP, C-reactive protein, mag * Recheck lactic acid and follow if elevated * D5 one half normal saline at 75 mL an hour * Regular diet * Restart home meds * CODE STATUS: Full code * VTE prophylaxis with Lovenox * Length of stay 2 to 3 days - Mortality Measure Prognosis:: Good
[2019-11-09] MEDS ORDERED: Dextrose 5%-0.45% NaCl 1,000 ML IV SCH (18:00)
[2019-11-09] MEDS ORDERED: Vancomycin 1 GM, Vancomycin 500 MG in Sodium Chloride 0.9% 500 ML IV ONE (18:00)
[2019-11-09] MEDS: Metoprolol Tartrate 25 MG Tab PO SCH (21:00)
[2019-11-10] MEDS ORDERED: Magnesium Sulfate/Water 4 GM in Premix Bag 1 BAG IV ONE (09:00)
[2019-11-10] MEDS ORDERED: Potassium Chloride 20 MEQ Tab.ER PO ONE (09:00)
[2019-11-10] MEDS: Rosuvastatin 10 MG Tab PO SCH (09:00)
[2019-11-10] MEDS: Metoprolol Tartrate 25 MG Tab PO SCH (09:02)
[2019-11-10] MEDS: Levothyroxine 50 MCG Tab PO SCH (09:03)
[2019-11-10] MEDS: Aspirin 81 MG Tab.Chew PO SCH (09:03)
[2019-11-10] MEDS: Enoxaparin 40 MG/0.4 ML Syringe SUBCUT SCH (09:04)
[2019-11-10] MEDS: Vancomycin 1 GM, Vancomycin 250 MG in Sodium Chloride 0.9% 250 ML IV SCH (11:57)
--- NOTE | 2019-11-10 12:38 | PCM.PN ---
- General Info Date of Service: 11/10/19 Admission Dx/Problem (Free Text): Admission Diagnosis/Problem Admission Diagnosis/Problem Cellulitis Subjective Update: Hiro is doing much better today. Decreased pain. No fever chills overnight. Functional Status: Reports: Pain Controlled - Review of Systems General: Reports: No Symptoms HEENT: Reports: No Symptoms Pulmonary: Reports: No Symptoms Cardiovascular: Reports: No Symptoms Gastrointestinal: Reports: No Symptoms Genitourinary: Reports: No Symptoms Musculoskeletal: Reports: Leg Pain - Patient Data Vitals - Most Recent: Last Vital Signs Temp 99.0 F 11/10/19 11:42 Pulse 67 11/10/19 11:42 Resp 20 11/10/19 11:42 BP 105/57 L 11/10/19 11:42 Pulse Ox 92 L 11/10/19 11:42 Weight - Most Recent: 223 lb 3.2 oz I&O - Last 24 Hours: Intake & Output 11/09/19 11/10/19 11/10/19 22:59 06:59 14:59 Intake Total 300 1364 240 Output Total 400 Balance 300 964 240 Lab Results Last 24 Hours: Laboratory Results - last 24 hr 11/09/19 11/09/19 11/09/19 Range/Units 14:10 20:07 22:10 WBC (4.23-9.07) K/mm3 RBC (4.63-6.08) M/mm3 Hgb (13.7-17.5) gm/dl Hct (40.1-51.0) % MCV (79.0-92.2) fl MCH (25.7-32.2) pg MCHC (32.2-35.5) g/dl RDW Std Deviation (35.1-43.9) fL Plt Count (163-337) K/mm3 MPV (9.4-12.3) fl Neut % (Auto) (34.0-67.9) % Lymph % (Auto) (21.8-53.1) % [place] % (Auto) (5.3-12.2) % Eos % (Auto) (0.8-7.0) Baso % (Auto) (0.1-1.2) % Neut # (Auto) (1.78-5.38) K/mm3 Lymph # (Auto) (1.32-3.57) K/mm3 [place] # (Auto) (0.30-0.82) K/mm3 Eos # (Auto) (0.04-0.54) K/mm3 Baso # (Auto) (0.01-0.08) K/mm3 Manual Slide Review Sodium (136-145) mEq/L Potassium (3.5-5.1) mEq/L Chloride (98-107) mEq/L Carbon Dioxide (21-32) mEq/L Anion Gap (5-15) BUN (7-18) mg/dL Creatinine (0.7-1.3) mg/dL Est Cr Clr Drug Dosing mL/min Estimated GFR (MDRD) (>60) mL/min BUN/Creatinine Ratio (14-18) Glucose (83-115) mg/dL Lactic Acid 3.2 H* 3.4 H* (0.4-2.0) mmol/L Calcium (8.5-10.1) mg/dL Magnesium (1.8-2.4) mg/dl Total Bilirubin (0.2-1.0) mg/dL AST (15-37) U/L ALT (16-63) U/L Alkaline Phosphatase (46-116) U/L C-Reactive Protein (<1.0) mg/dL Total Protein (6.4-8.2) g/dl Albumin (3.4-5.0) g/dl Globulin gm/dL Albumin/Globulin Ratio (1-2) TSH 3rd Generation (0.358-3.74) uIU/mL Urine Color Jazmin H (Yellow) Urine Appearance Slt cloudy H (Clear) Urine pH 6.0 (5.0-8.0) Ur Specific [place] 1.020 (1.005-1.030) Urine Protein Negative (Negative) Urine Glucose (UA) Negative (Negative) Urine Ketones Negative (Negative) Urine Occult Blood Trace-intact H (Negative) Urine Nitrite Negative (Negative) Urine Bilirubin Negative (Negative) Urine Urobilinogen 0.2 (0.2-1.0) Ur Leukocyte Esterase Negative (Negative) Urine RBC 0-5 (0-5) /hpf Urine WBC 0-5 (0-5) /hpf Ur Epithelial Cells 0-5 (0-5) /hpf Urine Bacteria Few (FEW) /hpf Urine Mucus Not seen (FEW) /hpf 11/10/19 11/10/19 11/10/19 Range/Units 07:30 07:30 07:30 WBC 12.53 H (4.23-9.07) K/mm3 RBC 4.15 L (4.63-6.08) M/mm3 Hgb 12.9 L D (13.7-17.5) gm/dl Hct 38.8 L (40.1-51.0) % MCV 93.5 H (79.0-92.2) fl MCH 31.1 (25.7-32.2) pg MCHC 33.2 (32.2-35.5) g/dl RDW Std Deviation 45.7 H (35.1-43.9) fL Plt Count 117 L (163-337) K/mm3 MPV 10.3 (9.4-12.3) fl Neut % (Auto) 89.1 H (34.0-67.9) % Lymph % (Auto) 6.3 L (21.8-53.1) % [place] % (Auto) 4.2 L (5.3-12.2) % Eos % (Auto) 0 L (0.8-7.0) Baso % (Auto) 0.2 (0.1-1.2) % Neut # (Auto) 11.17 H (1.78-5.38) K/mm3 Lymph # (Auto) 0.79 L (1.32-3.57) K/mm3 [place] # (Auto) 0.52 (0.30-0.82) K/mm3 Eos # (Auto) 0.00 L (0.04-0.54) K/mm3 Baso # (Auto) 0.03 (0.01-0.08) K/mm3 Manual Slide Review Normal smear Sodium 137 (136-145) mEq/L Potassium 3.2 L (3.5-5.1) mEq/L Chloride 105 (98-107) mEq/L Carbon Dioxide 21 (21-32) mEq/L Anion Gap 14.2 (5-15) BUN 23 H (7-18) mg/dL Creatinine 1.2 (0.7-1.3) mg/dL Est Cr Clr Drug Dosing 49.85 mL/min Estimated GFR (MDRD) 58 (>60) mL/min BUN/Creatinine Ratio 19.2 H (14-18) Glucose 138 H (83-115) mg/dL Lactic Acid 1.4 (0.4-2.0) mmol/L Calcium 8.6 (8.5-10.1) mg/dL Magnesium 1.6 L (1.8-2.4) mg/dl Total Bilirubin 1.0 (0.2-1.0) mg/dL AST 10 L (15-37) U/L ALT 22 (16-63) U/L Alkaline Phosphatase 52 (46-116) U/L C-Reactive Protein 15.3 H* (<1.0) mg/dL Total Protein 5.9 L (6.4-8.2) g/dl Albumin 2.8 L (3.4-5.0) g/dl Globulin 3.1 gm/dL Albumin/Globulin Ratio 0.9 L (1-2) TSH 3rd Generation 3.302 (0.358-3.74) uIU/mL Urine Color (Yellow) Urine Appearance (Clear) Urine pH (5.0-8.0) Ur Specific [place] (1.005-1.030) Urine Protein (Negative) Urine Glucose (UA) (Negative) Urine Ketones (Negative) Urine Occult Blood (Negative) Urine Nitrite (Negative) Urine Bilirubin (Negative) Urine Urobilinogen (0.2-1.0) Ur Leukocyte Esterase (Negative) Urine RBC (0-5) /hpf Urine WBC (0-5) /hpf Ur Epithelial Cells (0-5) /hpf Urine Bacteria (FEW) /hpf Urine Mucus (FEW) /hpf Jose Results Last 24 Hours: Microbiology 11/09/19 14:49 Anaerobic Blood Culture - Final Blood - Venous Med Orders - Current: Current Medications Acetaminophen (Tylenol) 650 mg PO Q4H PRN PRN Reason: Pain (Mild 1-3)/fever Hydrocodone Bitart/Acetaminophen ([place] 325-5 Mg) 1 tab PO Q4H PRN PRN Reason: Pain (moderate 4-6) Aspirin (Aspirin) 81 mg PO DAILY [facility] Last Admin: 11/10/19 09:03 Dose: 81 mg Enoxaparin Sodium (Lovenox) 40 mg SUBCUT DAILY [facility] Last Admin: 11/10/19 09:04 Dose: 40 mg Vancomycin HCl 1 gm/Vancomycin HCl 250 mg/ Sodium Chloride 250 mls @ 165 mls/ hr IV Q18H [facility] Last Admin: 11/10/19 11:57 Dose: 165 mls/hr Magnesium Sulfate 4 gm/ Premix 100 mls @ 25 mls/hr IV ONETIME ONE Stop: 11/10/19 12:59 Last Admin: 11/10/19 09:04 Dose: 25 mls/hr Levothyroxine Sodium (Synthroid) 50 mcg PO DAILY [facility] Last Admin: 11/10/19 09:03 Dose: 50 mcg Metoprolol Succinate (Toprol Xl) 50 mg PO BID [facility] Ondansetron HCl (Zofran) 4 mg IV Q4H PRN PRN Reason: Nausea/Vomiting Rosuvastatin Calcium (Crestor) 40 mg PO DAILY [facility] Last Admin: 11/10/19 09:00 Dose: 40 mg Sodium Chloride (Saline Flush) 10 ml FLUSH ASDIRECTED PRN PRN Reason: Keep Vein Open Last Admin: 11/09/19 14:11 Dose: 10 ml Vancomycin HCl (Pharmacy To Dose - Vancomycin) 0 dose .XX ASDIRECTED PRN PRN Reason: RX TO DOSE VANCOMYCIN Discontinued Medications Piperacillin Sod/Tazobactam (Sod 3.375 gm/ Sodium Chloride) 100 mls @ 200 mls/ hr IV ONETIME ONE Stop: 11/09/19 14:48 Last Admin: 11/09/19 14:32 Dose: 200 mls/hr Sodium Chloride (Normal Saline) 1,000 mls @ 1,000 mls/hr IV ONETIME ONE Stop: 11/09/19 16:06 Last Admin: 11/09/19 15:18 Dose: 1,000 mls/hr Vancomycin HCl 1 gm/Vancomycin HCl 500 mg/ Sodium Chloride 500 mls @ 250 mls/ hr IV ONETIME ONE Stop: 11/09/19 19:59 Last Admin: 11/09/19 18:24 Dose: 250 mls/hr Dextrose/Sodium Chloride (Dextrose 5%-1/2 Ns) 1,000 mls @ 75 mls/hr IV ASDIRECTED [facility] Last Admin: 11/09/19 18:23 Dose: 75 mls/hr Metoprolol Tartrate (Lopressor) 25 mg PO BID [facility] Last Admin: 11/10/19 09:02 Dose: 25 mg Potassium Chloride (Klor-Con M20) 40 meq PO ONETIME ONE Stop: 11/10/19 09:01 Last Admin: 11/10/19 09:00 Dose: 40 meq - Exam General: Alert HEENT: Pupils Equal, EOMI, Mucous Membr. Moist/[place] Neck: Supple Lungs: Clear to Auscultation, Normal Respiratory Effort Cardiovascular: Regular Rate, Regular Rhythm GI/Abdominal Exam: Normal Bowel Sounds, Soft, Non-Tender, No Organomegaly, No Distention, No Abnormal Bruit, No Mass Extremities: Normal Inspection, Normal Range of Motion, Non-Tender, No Pedal Edema, Normal Capillary Refill, Redness (Area marked yesterday for erythema has not changed or progressed outside of the area. Certainly less tenderness noted. ) Skin: Warm, Dry, Intact Psy/Mental Status: Alert, Normal Affect, Normal Mood Sepsis Event Note - Evaluation Sepsis Screening Result: No Definite Risk - Focused Exam Vital Signs: Vital Signs Temp Pulse Resp BP Pulse Ox 11/10/19 11:42 99.0 F 67 20 105/57 L 92 L 11/10/19 09:02 64 110/67 11/10/19 07:41 98.8 F 66 20 115/63 91 L 11/10/19 02:35 97.9 F 71 20 105/58 L 93 L 11/10/19 01:17 99.5 F 74 18 103/54 L 93 L Date Exam was Performed: 11/10/19 Time Exam was Performed: 14:43 - Problem List Review Problem List Initiated/Reviewed/Updated: Yes - My Orders Last 24 Hours: My Active Orders 11/09/19 16:45 Pharmacy to Dose - Vancomycin 0 dose .XX ASDIRECTED PRN 11/09/19 17:38 Up ad Rebeca [RC] ASDIRECTED Acetaminophen [Tylenol] 650 mg PO Q4H PRN Acetaminophen/HYDROcodone [[place] 325-5 MG] 1 tab PO Q4H PRN Ondansetron [Zofran] 4 mg IV Q4H PRN Resuscitation Status Routine 11/09/19 17:39 Oxygen Therapy [RC] PRN VTE/DVT Education [RC] QSHIFT Vital Signs [RC] Q4HR 11/09/19 Dinner Regular Diet [DIET] 11/10/19 08:22 Convert IV to Saline Lock [OM.PC] Routine 11/10/19 09:00 Aspirin 81 mg PO DAILY Enoxaparin [Lovenox] 40 mg SUBCUT DAILY Levothyroxine [Synthroid] 50 mcg PO DAILY Magnesium Sulfate/Water [Magnesium Sulfate in Water Premix] 4 gm Premix Bag 1 bag IV ONETIME Rosuvastatin [Crestor] 40 mg PO DAILY 11/10/19 09:13 Consult to Physical Therapy [PT Evaluation and Treatment] [CONS] Routine 11/10/19 12:00 Vancomycin 1 gm Vancomycin 250 mg Sodium Chloride 0.9% [Normal Saline] 250 ml IV Q18H 11/10/19 21:00 Metoprolol Succinate [Toprol XL] 50 mg PO BID 11/11/19 05:00 VANCOMYCIN TROUGH [CHEM] Timed 11/11/19 05:11 C-REACTIVE PROTEIN [CHEM] AM CBC WITH AUTO DIFF [HEME] AM COMPREHENSIVE METABOLIC PN,CMP [CHEM] AM MAGNESIUM [CHEM] AM 11/12/19 05:11 C-REACTIVE PROTEIN [CHEM] AM CBC WITH AUTO DIFF [HEME] AM COMPREHENSIVE METABOLIC PN,CMP [CHEM] AM MAGNESIUM [CHEM] AM 11/13/19 05:11 C-REACTIVE PROTEIN [CHEM] AM CBC WITH AUTO DIFF [HEME] AM COMPREHENSIVE METABOLIC PN,CMP [CHEM] AM MAGNESIUM [CHEM] AM - Plan Plan:: Assessment * Right lower extremity cellulitis with elevated lactic acid and anion gap * Area of erythema, warmth, and tenderness along the right anterior toro into the foot -no change in redness but decreased tenderness today * WBC 17.41-->12.53, anion gap 17.2-->14.2, lactic acid 3.2-->1.4 * Blood cultures done in the emergency room * Zosyn given in the emergency room -continued * Vancomycin pharmacy to dose * Patient given 1 L bolus of normal saline in the emergency room and kept on D5 half-normal saline overnight until lactic acidosis and anion gap normalized. * History of bilateral knee replacement * History of hypertension, hyperlipidemia, and hypothyroidism Plan * Admit to medical floor for IV antibiotics * Vancomycin pharmacy to dose * Consider changing to oral antibiotics in 1 to 2 days * Follow right lower extremity erythema clinically * Blood cultures pending * Follow CBC, CMP, C-reactive protein, mag * Stop IV fluids * Regular diet * Restart home meds * CODE STATUS: Full code * VTE prophylaxis with Lovenox * Length of stay 2 to 3 days
[2019-11-10] MEDS: Metoprolol Succinate 50 MG Tab.ER PO SCH (20:50)
[2019-11-11] MEDS: Rosuvastatin 10 MG Tab PO SCH (08:33)
[2019-11-11] MEDS: Vancomycin 1 GM, Vancomycin 250 MG in Sodium Chloride 0.9% 250 ML IV SCH ×3 (08:36→20:22)
[2019-11-11] MEDS: Aspirin 81 MG Tab.Chew PO SCH (08:37)
[2019-11-11] MEDS: Levothyroxine 50 MCG Tab PO SCH (08:37)
[2019-11-11] MEDS: Metoprolol Succinate 50 MG Tab.ER PO SCH ×2 (08:41→20:22)
[2019-11-11] MEDS: Enoxaparin 40 MG/0.4 ML Syringe SUBCUT SCH (08:44)
--- NOTE | 2019-11-11 13:23 | PCM.PN ---
- General Info Date of Service: 11/11/19 Admission Dx/Problem (Free Text): Admission Diagnosis/Problem Admission Diagnosis/Problem Cellulitis Subjective Update: Patient continues to improve with continued pain and redness in the right lower extremity but improved. His appetite has also improved. Functional Status: Reports: Pain Controlled - Review of Systems General: Reports: No Symptoms HEENT: Reports: No Symptoms Pulmonary: Reports: No Symptoms Cardiovascular: Reports: No Symptoms Musculoskeletal: Reports: No Symptoms - Patient Data Vitals - Most Recent: Last Vital Signs Temp 98.2 F 11/11/19 11:21 Pulse 64 11/11/19 11:21 Resp 20 11/11/19 11:21 BP 130/72 11/11/19 11:21 Pulse Ox 97 11/11/19 11:21 Weight - Most Recent: 223 lb 9.6 oz I&O - Last 24 Hours: Intake & Output 11/10/19 11/11/19 11/11/19 22:59 06:59 14:59 Intake Total 1500 300 360 Output Total 650 1050 Balance 850 -750 360 Lab Results Last 24 Hours: Laboratory Results - last 24 hr 11/11/19 11/11/19 11/11/19 Range/Units 05:10 05:10 05:10 WBC 9.71 H (4.23-9.07) K/mm3 RBC 4.07 L (4.63-6.08) M/mm3 Hgb 12.7 L (13.7-17.5) gm/dl Hct 38.2 L (40.1-51.0) % MCV 93.9 H (79.0-92.2) fl MCH 31.2 (25.7-32.2) pg MCHC 33.2 (32.2-35.5) g/dl RDW Std Deviation 45.9 H (35.1-43.9) fL Plt Count 110 L (163-337) K/mm3 MPV 10.9 (9.4-12.3) fl Neut % (Auto) 80.9 H (34.0-67.9) % Lymph % (Auto) 11.9 L (21.8-53.1) % [place] % (Auto) 6.4 (5.3-12.2) % Eos % (Auto) 0.5 L (0.8-7.0) Baso % (Auto) 0.2 (0.1-1.2) % Neut # (Auto) 7.85 H (1.78-5.38) K/mm3 Lymph # (Auto) 1.16 L (1.32-3.57) K/mm3 [place] # (Auto) 0.62 (0.30-0.82) K/mm3 Eos # (Auto) 0.05 (0.04-0.54) K/mm3 Baso # (Auto) 0.02 (0.01-0.08) K/mm3 Sodium 136 (136-145) mEq/L Potassium 3.7 (3.5-5.1) mEq/L Chloride 104 (98-107) mEq/L Carbon Dioxide 22 (21-32) mEq/L Anion Gap 13.7 (5-15) BUN 18 (7-18) mg/dL Creatinine 1.0 (0.7-1.3) mg/dL Est Cr Clr Drug Dosing 59.82 mL/min Estimated GFR (MDRD) > 60 (>60) mL/min BUN/Creatinine Ratio 18.0 (14-18) Glucose 103 (83-115) mg/dL Calcium 8.3 L (8.5-10.1) mg/dL Magnesium 2.0 (1.8-2.4) mg/dl Total Bilirubin 0.7 (0.2-1.0) mg/dL AST 11 L (15-37) U/L ALT 22 (16-63) U/L Alkaline Phosphatase 56 (46-116) U/L C-Reactive Protein 16.2 H* (<1.0) mg/dL Total Protein 6.0 L (6.4-8.2) g/dl Albumin 2.7 L (3.4-5.0) g/dl Globulin 3.3 gm/dL Albumin/Globulin Ratio 0.8 L (1-2) Vancomycin Trough 7.9 L (10.0-20.0) Jose Results Last 24 Hours: Microbiology 11/09/19 14:49 Aerobic Blood Culture - Preliminary Blood - Venous NO GROWTH AFTER 1 DAY Anaerobic Blood Culture - Final 11/09/19 14:10 Aerobic Blood Culture - Preliminary Blood - Venous - Lab Draw NO GROWTH AFTER 1 DAY Anaerobic Blood Culture - Preliminary NO GROWTH AFTER 1 DAY Med Orders - Current: Current Medications Acetaminophen (Tylenol) 650 mg PO Q4H PRN PRN Reason: Pain (Mild 1-3)/fever Hydrocodone Bitart/Acetaminophen ([place] 325-5 Mg) 1 tab PO Q4H PRN PRN Reason: Pain (moderate 4-6) Aspirin (Aspirin) 81 mg PO DAILY [facility] Last Admin: 11/11/19 08:37 Dose: 81 mg Enoxaparin Sodium (Lovenox) 40 mg SUBCUT DAILY [facility] Last Admin: 11/11/19 08:44 Dose: 40 mg Vancomycin HCl 1 gm/Vancomycin HCl 250 mg/ Sodium Chloride 250 mls @ 165 mls/ hr IV Q12H [facility] Last Admin: 11/11/19 08:36 Dose: 165 mls/hr Levothyroxine Sodium (Synthroid) 50 mcg PO DAILY [facility] Last Admin: 11/11/19 08:37 Dose: 50 mcg Metoprolol Succinate (Toprol Xl) 50 mg PO BID [facility] Last Admin: 11/11/19 08:41 Dose: 50 mg Ondansetron HCl (Zofran) 4 mg IV Q4H PRN PRN Reason: Nausea/Vomiting Rosuvastatin Calcium (Crestor) 40 mg PO DAILY [facility] Last Admin: 11/11/19 08:33 Dose: 40 mg Sodium Chloride (Saline Flush) 10 ml FLUSH ASDIRECTED PRN PRN Reason: Keep Vein Open Last Admin: 11/09/19 14:11 Dose: 10 ml Vancomycin HCl (Pharmacy To Dose - Vancomycin) 0 dose .XX ASDIRECTED PRN PRN Reason: RX TO DOSE VANCOMYCIN Discontinued Medications Piperacillin Sod/Tazobactam (Sod 3.375 gm/ Sodium Chloride) 100 mls @ 200 mls/ hr IV ONETIME ONE Stop: 11/09/19 14:48 Last Admin: 11/09/19 14:32 Dose: 200 mls/hr Sodium Chloride (Normal Saline) 1,000 mls @ 1,000 mls/hr IV ONETIME ONE Stop: 11/09/19 16:06 Last Admin: 11/09/19 15:18 Dose: 1,000 mls/hr Vancomycin HCl 1 gm/Vancomycin HCl 500 mg/ Sodium Chloride 500 mls @ 250 mls/ hr IV ONETIME ONE Stop: 11/09/19 19:59 Last Admin: 11/09/19 18:24 Dose: 250 mls/hr Vancomycin HCl 1 gm/Vancomycin HCl 250 mg/ Sodium Chloride 250 mls @ 165 mls/ hr IV Q18H [facility] Last Admin: 11/11/19 10:07 Dose: Not Given Dextrose/Sodium Chloride (Dextrose 5%-1/2 Ns) 1,000 mls @ 75 mls/hr IV ASDIRECTED [facility] Last Admin: 11/09/19 18:23 Dose: 75 mls/hr Magnesium Sulfate 4 gm/ Premix 100 mls @ 25 mls/hr IV ONETIME ONE Stop: 11/10/19 12:59 Last Admin: 11/10/19 09:04 Dose: 25 mls/hr Metoprolol Tartrate (Lopressor) 25 mg PO BID [facility] Last Admin: 11/10/19 09:02 Dose: 25 mg Potassium Chloride (Klor-Con M20) 40 meq PO ONETIME ONE Stop: 11/10/19 09:01 Last Admin: 11/10/19 09:00 Dose: 40 meq - Exam General: Alert, Oriented HEENT: Pupils Equal, EOMI, Mucous Membr. Moist/[place] Neck: Supple Lungs: Clear to Auscultation, Normal Respiratory Effort Cardiovascular: Regular Rate, Regular Rhythm GI/Abdominal Exam: Normal Bowel Sounds, Soft, Non-Tender, No Organomegaly, No Distention Extremities: Pedal Edema, Redness (Continue redness of the right lower extremity but it has shrunk in size based on markings from admission. Continued tenderness on the medial anterior aspect of the toro) Psy/Mental Status: Alert, Normal Mood Sepsis Event Note - Evaluation Sepsis Screening Result: No Definite Risk - Focused Exam Vital Signs: Vital Signs Temp Pulse Resp BP Pulse Ox 11/11/19 11:21 98.2 F 64 20 130/72 97 11/11/19 08:41 99.0 F 70 16 112/63 96 11/11/19 04:43 98.2 F 64 19 154/77 H 95 Date Exam was Performed: 11/11/19 Time Exam was Performed: 13:20 - Problem List Review Problem List Initiated/Reviewed/Updated: Yes - My Orders Last 24 Hours: My Active Orders 11/10/19 21:00 Metoprolol Succinate [Toprol XL] 50 mg PO BID 11/11/19 08:00 Vancomycin 1 gm Vancomycin 250 mg Sodium Chloride 0.9% [Normal Saline] 250 ml IV Q12H 11/12/19 05:11 C-REACTIVE PROTEIN [CHEM] AM CBC WITH AUTO DIFF [HEME] AM COMPREHENSIVE METABOLIC PN,CMP [CHEM] AM MAGNESIUM [CHEM] AM 11/13/19 05:11 C-REACTIVE PROTEIN [CHEM] AM CBC WITH AUTO DIFF [HEME] AM COMPREHENSIVE METABOLIC PN,CMP [CHEM] AM MAGNESIUM [CHEM] AM - Plan Plan:: Assessment * Right lower extremity cellulitis with elevated lactic acid and anion gap * Area of erythema, warmth, and tenderness along the right anterior toro into the foot -no change in redness but decreased tenderness today * WBC 17.41-->12.53-->9.7, anion gap 17.2-->14.2, lactic acid 3.2-->1.4 * Blood cultures done in the emergency room * Zosyn given in the emergency room -continued * Vancomycin pharmacy to dose * Patient given 1 L bolus of normal saline in the emergency room and kept on D5 half-normal saline overnight until lactic acidosis and anion gap normalized. * History of bilateral knee replacement * History of hypertension, hyperlipidemia, and hypothyroidism Plan * Admit to medical floor for IV antibiotics * Vancomycin pharmacy to dose * MRSA screen which will help guide oral antibiotics * Consider changing to oral antibiotics in 1 to 2 days * Follow right lower extremity erythema clinically * Blood cultures pending * Follow CBC, CMP, C-reactive protein, mag * Stop IV fluids * Regular diet * Restart home meds * CODE STATUS: Full code * VTE prophylaxis with Lovenox * Length of stay 2 to 3 days
[2019-11-11] MEDS ORDERED: Aluminum Hydroxide/Magnesium Hydroxide/Simethicone Susp 30 ML Cup PO ONE (20:16)
[2019-11-12] MEDS: Vancomycin 1 GM, Vancomycin 250 MG in Sodium Chloride 0.9% 250 ML IV SCH (08:19)
[2019-11-12] MEDS: Aspirin 81 MG Tab.Chew PO SCH (08:23)
[2019-11-12] MEDS: Metoprolol Succinate 50 MG Tab.ER PO SCH ×2 (08:23→21:56)
[2019-11-12] MEDS: Rosuvastatin 10 MG Tab PO SCH (08:23)
[2019-11-12] MEDS: Levothyroxine 50 MCG Tab PO SCH (08:23)
[2019-11-12] MEDS: Enoxaparin 40 MG/0.4 ML Syringe SUBCUT SCH (08:24)
--- NOTE | 2019-11-12 11:47 | PCM.PN ---
- General Info Date of Service: 11/12/19 Admission Dx/Problem (Free Text): Admission Diagnosis/Problem Admission Diagnosis/Problem Cellulitis Subjective Update: Hiro is doing well. He has a good appetite, slept well, and is able to ambulate without pain. He is getting vancomycin for his cellulitis. Functional Status: Reports: Pain Controlled - Review of Systems General: Reports: No Symptoms HEENT: Reports: No Symptoms Pulmonary: Reports: No Symptoms Cardiovascular: Reports: No Symptoms Gastrointestinal: Reports: No Symptoms Musculoskeletal: Reports: No Symptoms Skin: Reports: Other (Improvement in the right lower cellulitis with decreased erythema and size.) - Patient Data Vitals - Most Recent: Last Vital Signs Temp 97.7 F 11/12/19 10:32 Pulse 61 11/12/19 10:46 Resp 16 11/12/19 10:32 BP 146/91 H 11/12/19 10:32 Pulse Ox 95 11/12/19 10:32 Weight - Most Recent: 223 lb 3.2 oz I&O - Last 24 Hours: Intake & Output 11/11/19 11/12/19 11/12/19 22:59 06:59 14:59 Intake Total 990 350 420 Output Total 625 975 Balance 365 -625 420 Lab Results Last 24 Hours: Laboratory Results - last 24 hr 11/11/19 11/12/19 11/12/19 Range/Units 13:32 06:00 06:00 WBC 6.81 (4.23-9.07) K/mm3 RBC 4.07 L (4.63-6.08) M/mm3 Hgb 12.6 L (13.7-17.5) gm/dl Hct 38.0 L (40.1-51.0) % MCV 93.4 H (79.0-92.2) fl MCH 31.0 (25.7-32.2) pg MCHC 33.2 (32.2-35.5) g/dl RDW Std Deviation 44.1 H (35.1-43.9) fL Plt Count 124 L (163-337) K/mm3 MPV 10.7 (9.4-12.3) fl Neut % (Auto) 66.9 (34.0-67.9) % Lymph % (Auto) 18.1 L (21.8-53.1) % Carbon % (Auto) 10.1 (5.3-12.2) % Eos % (Auto) 4.4 (0.8-7.0) Baso % (Auto) 0.4 (0.1-1.2) % Neut # (Auto) 4.55 (1.78-5.38) K/mm3 Lymph # (Auto) 1.23 L (1.32-3.57) K/mm3 Carbon # (Auto) 0.69 (0.30-0.82) K/mm3 Eos # (Auto) 0.30 (0.04-0.54) K/mm3 Baso # (Auto) 0.03 (0.01-0.08) K/mm3 Sodium 136 (136-145) mEq/L Potassium 3.8 (3.5-5.1) mEq/L Chloride 106 (98-107) mEq/L Carbon Dioxide 23 (21-32) mEq/L Anion Gap 10.8 (5-15) BUN 15 (7-18) mg/dL Creatinine 1.0 (0.7-1.3) mg/dL Est Cr Clr Drug Dosing 59.82 mL/min Estimated GFR (MDRD) > 60 (>60) mL/min BUN/Creatinine Ratio 15.0 (14-18) Glucose 99 (83-115) mg/dL Calcium 8.5 (8.5-10.1) mg/dL Magnesium 2.0 (1.8-2.4) mg/dl Total Bilirubin 0.5 (0.2-1.0) mg/dL AST 12 L (15-37) U/L ALT 27 (16-63) U/L Alkaline Phosphatase 59 (46-116) U/L C-Reactive Protein 9.9 H* (<1.0) mg/dL Total Protein 6.0 L (6.4-8.2) g/dl Albumin 2.6 L (3.4-5.0) g/dl Globulin 3.4 gm/dL Albumin/Globulin Ratio 0.8 L (1-2) MRSA (PCR) Negative Jose Results Last 24 Hours: Microbiology 11/09/19 14:49 Aerobic Blood Culture - Preliminary Blood - Venous NO GROWTH AFTER 2 DAYS Anaerobic Blood Culture - Final 11/09/19 14:10 Aerobic Blood Culture - Preliminary Blood - Venous - Lab Draw NO GROWTH AFTER 2 DAYS Anaerobic Blood Culture - Preliminary NO GROWTH AFTER 2 DAYS Med Orders - Current: Current Medications Acetaminophen (Tylenol) 650 mg PO Q4H PRN PRN Reason: Pain (Mild 1-3)/fever Hydrocodone Bitart/Acetaminophen ([place] 325-5 Mg) 1 tab PO Q4H PRN PRN Reason: Pain (moderate 4-6) Aspirin (Aspirin) 81 mg PO DAILY [facility] Last Admin: 11/12/19 08:23 Dose: 81 mg Enoxaparin Sodium (Lovenox) 40 mg SUBCUT DAILY [facility] Last Admin: 11/12/19 08:24 Dose: 40 mg Vancomycin HCl 1 gm/Vancomycin HCl 250 mg/ Sodium Chloride 250 mls @ 165 mls/ hr IV Q12H [facility] Last Admin: 11/12/19 08:19 Dose: 165 mls/hr Levothyroxine Sodium (Synthroid) 50 mcg PO DAILY [facility] Last Admin: 11/12/19 08:23 Dose: 50 mcg Metoprolol Succinate (Toprol Xl) 50 mg PO BID [facility] Last Admin: 11/12/19 08:23 Dose: 50 mg Ondansetron HCl (Zofran) 4 mg IV Q4H PRN PRN Reason: Nausea/Vomiting Rosuvastatin Calcium (Crestor) 40 mg PO DAILY [facility] Last Admin: 11/12/19 08:23 Dose: 40 mg Sodium Chloride (Saline Flush) 10 ml FLUSH ASDIRECTED PRN PRN Reason: Keep Vein Open Last Admin: 11/09/19 14:11 Dose: 10 ml Vancomycin HCl (Pharmacy To Dose - Vancomycin) 0 dose .XX ASDIRECTED PRN PRN Reason: RX TO DOSE VANCOMYCIN Discontinued Medications Al Hydroxide/Mg Hydroxide (Mag-Al Plus) 30 ml PO ONETIME ONE Stop: 11/11/19 20:17 Last Admin: 11/11/19 20:57 Dose: 30 ml Piperacillin Sod/Tazobactam (Sod 3.375 gm/ Sodium Chloride) 100 mls @ 200 mls/ hr IV ONETIME ONE Stop: 11/09/19 14:48 Last Admin: 11/09/19 14:32 Dose: 200 mls/hr Sodium Chloride (Normal Saline) 1,000 mls @ 1,000 mls/hr IV ONETIME ONE Stop: 11/09/19 16:06 Last Admin: 11/09/19 15:18 Dose: 1,000 mls/hr Vancomycin HCl 1 gm/Vancomycin HCl 500 mg/ Sodium Chloride 500 mls @ 250 mls/ hr IV ONETIME ONE Stop: 11/09/19 19:59 Last Admin: 11/09/19 18:24 Dose: 250 mls/hr Vancomycin HCl 1 gm/Vancomycin HCl 250 mg/ Sodium Chloride 250 mls @ 165 mls/ hr IV Q18H [facility] Last Admin: 11/11/19 10:07 Dose: Not Given Dextrose/Sodium Chloride (Dextrose 5%-1/2 Ns) 1,000 mls @ 75 mls/hr IV ASDIRECTED [facility] Last Admin: 11/09/19 18:23 Dose: 75 mls/hr Magnesium Sulfate 4 gm/ Premix 100 mls @ 25 mls/hr IV ONETIME ONE Stop: 11/10/19 12:59 Last Admin: 11/10/19 09:04 Dose: 25 mls/hr Metoprolol Tartrate (Lopressor) 25 mg PO BID [facility] Last Admin: 11/10/19 09:02 Dose: 25 mg Potassium Chloride (Klor-Con M20) 40 meq PO ONETIME ONE Stop: 11/10/19 09:01 Last Admin: 11/10/19 09:00 Dose: 40 meq - Exam General: Alert, Oriented HEENT: Pupils Equal, EOMI, Mucous Membr. Moist/[place] Neck: Supple Lungs: Clear to Auscultation, Normal Respiratory Effort Cardiovascular: Regular Rate, Regular Rhythm Extremities: Pedal Edema Sepsis Event Note - Evaluation Sepsis Screening Result: No Definite Risk - Focused Exam Vital Signs: Vital Signs Temp Pulse Pulse Resp BP Pulse Ox 11/12/19 10:46 61 11/12/19 10:32 97.7 F 58 L 16 146/91 H 95 11/12/19 08:23 69 119/85 11/12/19 08:18 98.1 F 69 16 119/85 97 11/12/19 04:54 98.4 F 61 18 133/71 93 L 11/12/19 00:26 98.6 F 69 18 137/74 93 L Date Exam was Performed: 11/12/19 Time Exam was Performed: 12:51 - Problem List Review Problem List Initiated/Reviewed/Updated: Yes - My Orders Last 24 Hours: My Active Orders 11/13/19 05:11 C-REACTIVE PROTEIN [CHEM] AM CBC WITH AUTO DIFF [HEME] AM COMPREHENSIVE METABOLIC PN,CMP [CHEM] AM MAGNESIUM [CHEM] AM - Plan Plan:: Assessment * Right lower extremity cellulitis with elevated lactic acid and anion gap * Area of erythema, warmth, and tenderness along the right anterior toro into the foot -no change in redness but decreased tenderness today * WBC 17.41-->12.53-->9.7-->6.8, anion gap 17.2-->14.2-->10.8, lactic acid 3.2- ->1.4 * Blood cultures done in the emergency room * Zosyn given in the emergency room -continued * Currently on vancomycin pharmacy to dose * Patient given 1 L bolus of normal saline in the emergency room and kept on D5 half-normal saline overnight until lactic acidosis and anion gap normalized. * Negative MRSA screen * History of bilateral knee replacement * History of hypertension, hyperlipidemia, and hypothyroidism Plan * Admit to medical floor for IV antibiotics * Stop vancomycin * Cefazolin 1 g every 8 hours * Follow right lower extremity erythema clinically * Blood cultures pending -currently negative * Follow CBC, CMP, C-reactive protein, mag * Stop IV fluids * Regular diet * Restart home meds * CODE STATUS: Full code * VTE prophylaxis with Lovenox * Plan discharge for tomorrow.
[2019-11-12] MEDS: ceFAZolin 1 GM in Premix Bag 1 BAG IV SCH ×2 (13:34→21:57)
[2019-11-13] MEDS: ceFAZolin 1 GM in Premix Bag 1 BAG IV SCH (05:45)
[2019-11-13] MEDS: Levothyroxine 50 MCG Tab PO SCH (08:14)
[2019-11-13] MEDS: Aspirin 81 MG Tab.Chew PO SCH (08:14)
[2019-11-13] MEDS: Metoprolol Succinate 50 MG Tab.ER PO SCH (08:14)
[2019-11-13] MEDS: Rosuvastatin 10 MG Tab PO SCH (08:15)
[2019-11-13] MEDS: Enoxaparin 40 MG/0.4 ML Syringe SUBCUT SCH (08:15)
--- NOTE | 2019-11-13 12:03 | PCM.DCSUM1 ---
Discharge Summary - Hospital Course HPI Initial Comments: 79-year-old male who with history of hypertension, hyperlipidemia, and hypothyroidism presents to the emergency room with fever, chills, cold shakes since last night. Patient states that approximately 2 weeks ago he felt like he had arthritic pain in his right lower extremity and foot. This morning his foot became hot and painful. Because of the cold chills patient came to the emergency room. Patient denies any trauma to this area. He does have bilateral knee replacements. He denies any headache, blurred vision, chest pain , shortness of breath, abdominal pain, changes in stool or bowel movements. He had a bowel movement this morning. In the emergency room he was found to be afebrile. White count was 17.41, anion gap of 17.2 with a BUN of 23 and a creatinine of 1.3. Lactic acid was 3.2. Glucose was slightly elevated at 144. He was given 1 L normal saline and started on Zosyn. He does state he is currently feeling better. Ultrasound showed no DVT. Diagnosis: Stroke: No - Discharge Data Discharge Date: 11/13/19 (Admit date: 11/09/19) Discharge Disposition: Home, Self-Care 01 Condition: Good - Referral to Home Health Primary Care Physician: Milton King MD - Discharge Diagnosis/Problem(s) (1) Cellulitis of right lower extremity SNOMED Code(s): 562482795 ICD Code: L03.115 - CELLULITIS OF RIGHT LOWER LIMB Status: Acute Priority : High Current Visit: Yes (2) Sepsis SNOMED Code(s): 34422188 ICD Code: A41.9 - SEPSIS, UNSPECIFIED ORGANISM Status: Resolved Priority : High Current Visit: Yes Qualifiers: Sepsis type: sepsis due to unspecified organism Sepsis acute organ dysfunction status: without acute organ dysfunction Qualified Code(s): A41.9 - Sepsis, unspecified organism (3) HLD (hyperlipidemia) SNOMED Code(s): 89177352 ICD Code: E78.5 - HYPERLIPIDEMIA, UNSPECIFIED Status: Chronic Priority: Low Current Visit: No Qualifiers: Hyperlipidemia type: unspecified Qualified Code(s): E78.5 - Hyperlipidemia , unspecified (4) HTN (hypertension) SNOMED Code(s): 60829627 ICD Code: I10 - ESSENTIAL (PRIMARY) HYPERTENSION Status: Chronic Priority : Low Current Visit: No Qualifiers: Hypertension type: unspecified Qualified Code(s): I10 - Essential (primary ) hypertension (5) Hypothyroidism SNOMED Code(s): 77953466 ICD Code: E03.9 - HYPOTHYROIDISM, UNSPECIFIED Status: Chronic Priority: Low Current Visit: No Qualifiers: Hypothyroidism type: unspecified Qualified Code(s): E03.9 - Hypothyroidism , unspecified - Patient Summary/Data Consults: Consultations 11/10/19 09:13 Consult to Physical Therapy [PT Evaluation and Treatment] [CONS] Routine Labs Pending at D/C: None Recommended Follow-up Testing/Procedures: Follow-up with primary care provider within 5-7 days of discharge. Hospital Course: [facility] for IV antibiotics for right lower extremity cellulitis. He was started on vancomycin and Zosyn in the ED and this was continued initially on the floor with good response. Area of infection was demarcated and this did improve substantially. Blood cultures remain negative. He was ultimately switched to IV Ancef and continue to improve with his leukocytosis resolving. PT was ordered to work with him and noted he was at prior level of function and denied need for any continued therapies. Discussed discharge IV antibiotic with Dr. Meeks and he recommends 4 times daily 500 mg Keflex. Patient was instructed to follow-up with his primary care provider within 5 to 7 days, as he may require a longer duration of antibiotics. He was instructed to be sure that he takes all antibiotics as prescribed. Home medications were continued. He was instructed to follow-up with his primary care provider or return to the emergency room should symptoms such as fever, drainage, worsening erythema, worsening pain, or other infectious symptoms develop. He was discharged home today. - Patient Instructions Diet: Usual Diet as Tolerated Activity: As Tolerated Showering/Bathing: May Shower Wound/Incision Care: Keep Operative Site/Wound Site Clean and Dry Notify Provider of: Fever, Increased Pain, Swelling and Redness, Drainage, Nausea and/or Vomiting Other/Special Instructions: Follow-up with primary care provider within 5-7 days of discharge. Your primary care provider may decide to keep you on the antibiotic longer. Take all of your antibiotic as prescribed until completion, even if you feel 100% better. Resume home medications as directed. Should symptoms return or worsen, contact your primary care provider or return to the Emergency Department. - Discharge Plan *PRESCRIPTION DRUG MONITORING PROGRAM REVIEWED*: No *COPY OF PRESCRIPTION DRUG MONITORING REPORT IN PATIENT ARMANDO: No Prescriptions/Med Rec: cephALEXin [Keflex] 500 mg PO QID #28 cap Home Medications: Home Meds atorvaSTATin Calcium [Atorvastatin Calcium] 40 mg PO DAILY 01/21/15 [History] Levothyroxine [Synthroid] 50 mcg PO DAILY 10/17/18 [History] Aspirin [[place] Aspirin] 81 mg PO DAILY 02/17/19 [History] Flaxseed Oil [Flaxseed] 1,000 mg PO DAILY 11/09/19 [History] Metoprolol Succinate [Toprol Xl] 50 mg PO BID 11/10/19 [History] cephALEXin [Keflex] 500 mg PO QID #28 cap 11/13/19 [Rx] Oxygen Therapy Mode: Room Air Patient Handouts: Cellulitis, Adult, Sepsis, Adult Forms: ED Department Discharge Referrals: Milton King MD [Primary Care Provider] - 11/30/19 4:30 pm (please attend the scheduled follow up appointment with your primary care provider.) - Discharge Summary/Plan Comment DC Time >30 min.: Yes (45 mins) - General Info Date of Service: 11/13/19 Admission Dx/Problem (Free Text: Admission Diagnosis/Problem Admission Diagnosis/Problem Cellulitis Functional Status: Reports: Pain Controlled, Tolerating Diet, Ambulating, Urinating. Denies: New Symptoms - Review of Systems General: Reports: No Symptoms. Denies: Fever, Weakness, Fatigue, Malaise, Chills HEENT: Reports: No Symptoms. Denies: Headaches, Sore Throat Pulmonary: Reports: No Symptoms. Denies: Shortness of Breath, Pleuritic Chest Pain, Sputum, Wheezing Cardiovascular: Reports: No Symptoms. Denies: Chest Pain, Palpitations, Dyspnea on Exertion, Edema Gastrointestinal: Reports: No Symptoms. Denies: Abdominal Pain, Constipation, Diarrhea, Nausea, Vomiting Genitourinary: Reports: No Symptoms. Denies: Pain Musculoskeletal: Reports: No Symptoms. Denies: Neck Pain Skin: Reports: No Symptoms. Denies: Cyanosis Neurological: Reports: No Symptoms. Denies: Confusion, Pre-Existing Deficit, Difficulty Walking, Gait Disturbance Psychiatric: Reports: No Symptoms - Patient Data Vitals - Most Recent: Last Vital Signs Temp 97.9 F 11/13/19 08:36 Pulse 65 11/13/19 08:36 Resp 20 11/13/19 08:36 BP 132/76 11/13/19 08:36 Pulse Ox 97 11/13/19 08:36 Weight - Most Recent: 225 lb 8 oz I&O - Last 24 hours: Intake & Output 11/12/19 11/13/19 11/13/19 22:59 06:59 14:59 Intake Total 770 550 520 Output Total 1200 2225 Balance -430 -1670 520 Lab Results - Last 24 hrs: Laboratory Results - last 24 hr 11/13/19 11/13/19 Range/Units 04:58 04:58 WBC 7.44 (4.23-9.07) K/mm3 RBC 4.34 L (4.63-6.08) M/mm3 Hgb 13.4 L (13.7-17.5) gm/dl Hct 40.2 (40.1-51.0) % MCV 92.6 H (79.0-92.2) fl MCH 30.9 (25.7-32.2) pg MCHC 33.3 (32.2-35.5) g/dl RDW Std Deviation 44.2 H (35.1-43.9) fL Plt Count 158 L (163-337) K/mm3 MPV 10.9 (9.4-12.3) fl Neut % (Auto) 62.1 (34.0-67.9) % Lymph % (Auto) 19.0 L (21.8-53.1) % [place] % (Auto) 9.9 (5.3-12.2) % Eos % (Auto) 8.2 H (0.8-7.0) Baso % (Auto) 0.7 (0.1-1.2) % Neut # (Auto) 4.62 (1.78-5.38) K/mm3 Lymph # (Auto) 1.41 (1.32-3.57) K/mm3 [place] # (Auto) 0.74 (0.30-0.82) K/mm3 Eos # (Auto) 0.61 H (0.04-0.54) K/mm3 Baso # (Auto) 0.05 (0.01-0.08) K/mm3 Sodium 140 (136-145) mEq/L Potassium 4.1 (3.5-5.1) mEq/L Chloride 104 (98-107) mEq/L Carbon Dioxide 25 (21-32) mEq/L Anion Gap 15.1 H (5-15) BUN 13 (7-18) mg/dL Creatinine 1.0 (0.7-1.3) mg/dL Est Cr Clr Drug Dosing 59.82 mL/min Estimated GFR (MDRD) > 60 (>60) mL/min BUN/Creatinine Ratio 13.0 L (14-18) Glucose 101 (83-115) mg/dL Calcium 8.9 (8.5-10.1) mg/dL Magnesium 2.0 (1.8-2.4) mg/dl Total Bilirubin 0.5 (0.2-1.0) mg/dL AST 15 (15-37) U/L ALT 32 (16-63) U/L Alkaline Phosphatase 68 (46-116) U/L C-Reactive Protein 7.0 H* (<1.0) mg/dL Total Protein 6.7 (6.4-8.2) g/dl Albumin 3.0 L (3.4-5.0) g/dl Globulin 3.7 gm/dL Albumin/Globulin Ratio 0.8 L (1-2) REINIER Results - Last 24 hrs: Microbiology 11/09/19 14:49 Aerobic Blood Culture - Preliminary Blood - Venous NO GROWTH AFTER 3 DAYS Anaerobic Blood Culture - Final 11/09/19 14:10 Aerobic Blood Culture - Preliminary Blood - Venous - Lab Draw NO GROWTH AFTER 3 DAYS Anaerobic Blood Culture - Preliminary NO GROWTH AFTER 3 DAYS Med Orders - Current: Current Medications Acetaminophen (Tylenol) 650 mg PO Q4H PRN PRN Reason: Pain (Mild 1-3)/fever Hydrocodone Bitart/Acetaminophen ([place] 325-5 Mg) 1 tab PO Q4H PRN PRN Reason: Pain (moderate 4-6) Aspirin (Aspirin) 81 mg PO DAILY [facility] Last Admin: 11/13/19 08:14 Dose: 81 mg Enoxaparin Sodium (Lovenox) 40 mg SUBCUT DAILY [facility] Last Admin: 11/13/19 08:15 Dose: 40 mg Cefazolin Sodium/Dextrose 1 gm (/ Premix) 50 mls @ 100 mls/hr IV Q8HR [facility] Last Admin: 11/13/19 05:45 Dose: 100 mls/hr Levothyroxine Sodium (Synthroid) 50 mcg PO DAILY [facility] Last Admin: 11/13/19 08:14 Dose: 50 mcg Metoprolol Succinate (Toprol Xl) 50 mg PO BID [facility] Last Admin: 11/13/19 08:14 Dose: 50 mg Ondansetron HCl (Zofran) 4 mg IV Q4H PRN PRN Reason: Nausea/Vomiting Rosuvastatin Calcium (Crestor) 40 mg PO DAILY [facility] Last Admin: 11/13/19 08:15 Dose: 40 mg Sodium Chloride (Saline Flush) 10 ml FLUSH ASDIRECTED PRN PRN Reason: Keep Vein Open Last Admin: 11/09/19 14:11 Dose: 10 ml Discontinued Medications Al Hydroxide/Mg Hydroxide (Mag-Al Plus) 30 ml PO ONETIME ONE Stop: 11/11/19 20:17 Last Admin: 11/11/19 20:57 Dose: 30 ml Piperacillin Sod/Tazobactam (Sod 3.375 gm/ Sodium Chloride) 100 mls @ 200 mls/ hr IV ONETIME ONE Stop: 11/09/19 14:48 Last Admin: 11/09/19 14:32 Dose: 200 mls/hr Sodium Chloride (Normal Saline) 1,000 mls @ 1,000 mls/hr IV ONETIME ONE Stop: 11/09/19 16:06 Last Admin: 11/09/19 15:18 Dose: 1,000 mls/hr Vancomycin HCl 1 gm/Vancomycin HCl 500 mg/ Sodium Chloride 500 mls @ 250 mls/ hr IV ONETIME ONE Stop: 11/09/19 19:59 Last Admin: 11/09/19 18:24 Dose: 250 mls/hr Vancomycin HCl 1 gm/Vancomycin HCl 250 mg/ Sodium Chloride 250 mls @ 165 mls/ hr IV Q18H [facility] Last Admin: 11/11/19 10:07 Dose: Not Given Dextrose/Sodium Chloride (Dextrose 5%-1/2 Ns) 1,000 mls @ 75 mls/hr IV ASDIRECTED [facility] Last Admin: 11/09/19 18:23 Dose: 75 mls/hr Magnesium Sulfate 4 gm/ Premix 100 mls @ 25 mls/hr IV ONETIME ONE Stop: 11/10/19 12:59 Last Admin: 11/10/19 09:04 Dose: 25 mls/hr Vancomycin HCl 1 gm/Vancomycin HCl 250 mg/ Sodium Chloride 250 mls @ 165 mls/ hr IV Q12H [facility] Last Admin: 11/12/19 08:19 Dose: 165 mls/hr Metoprolol Tartrate (Lopressor) 25 mg PO BID [facility] Last Admin: 11/10/19 09:02 Dose: 25 mg Potassium Chloride (Klor-Con M20) 40 meq PO ONETIME ONE Stop: 11/10/19 09:01 Last Admin: 11/10/19 09:00 Dose: 40 meq Vancomycin HCl (Pharmacy To Dose - Vancomycin) 0 dose .XX ASDIRECTED PRN PRN Reason: RX TO DOSE VANCOMYCIN - Exam Quality Assessment: Reports: DVT Prophylaxis General: Reports: Alert, Oriented, Cooperative, No Acute Distress HEENT: Reports: Pupils Equal, Pupils Reactive, Mucous Membr. Moist/[place] Neck: Reports: Supple, Trachea Midline Lungs: Reports: Clear to Auscultation, Normal Respiratory Effort Cardiovascular: Reports: Regular Rate, Regular Rhythm GI/Abdominal Exam: Normal Bowel Sounds, Soft, No Distention, No Abnormal Bruit (Male) Exam: Deferred Rectal (Males) Exam: Deferred Back Exam: Reports: Normal Inspection, Full Range of Motion Extremities: Normal Range of Motion, Non-Tender, No Pedal Edema, Normal Capillary Refill, Redness (Right leg, improving ), Other (Improving cellulitis, reduction from border which was demarcated on arrival ). No: Increased Warmth Skin: Reports: Warm, Dry, Intact Neurological: Reports: No New Focal Deficit Psy/Mental Status: Reports: Alert, Normal Affect, Normal Mood
[2019-11-13 12:23] VITALS: BP 128/81; PULSE 64
== END 2019-11-13 13:50 | disposition home or self-care (01) | DRG 872 ==
LOC: JD.ED 11:04 → JD.MS 15:41
PROVIDERS: ADMIT Family Medicine; ATTEND Family Medicine
DX: A41.9 Sepsis, unspecified organism (principal); L03.115 Cellulitis of right lower limb; H54.7 Unspecified visual loss; H91.90 Unspecified hearing loss, unspecified ear; E78.5 Hyperlipidemia, unspecified; I10 Essential (primary) hypertension; R91.8 Other nonspecific abnormal finding of lung field; E03.9 Hypothyroidism, unspecified; E78.00 Pure hypercholesterolemia, unspecified; N40.0 Benign prostatic hyperplasia without lower urinary tract symptoms; M19.90 Unspecified osteoarthritis, unspecified site; Z96.659 Presence of unspecified artificial knee joint; E11.9 Type 2 diabetes mellitus without complications; Z96.653 Presence of artificial knee joint, bilateral; Z79.82 Long term (current) use of aspirin; Z79.890 Hormone replacement therapy; Z79.899 Other long term (current) drug therapy; Z90.49 Acquired absence of other specified parts of digestive tract
CPT/HCPCS: 36415; 80053; 83605; 85025; 87040 ×2; 93971; 96365; 99285; J2543; J7030; J7050; 80202; 81001; 83735; 84443; 86140; 87641; 97161-GP; 99284; A9270-GY; J0690; J1650; J3370; J3475; J7040; J7042

== ENCOUNTER 2023-10-17 09:03 | Day surgery (SDC) | payer MEDICARE, OTHER ==
[2023-10-17] MEDS: Polymyxin B/Trimethoprim 10 ML Bottle EYERT SCH ×4 (07:23→09:36)
[2023-10-17] MEDS: Brimonidine 0.2% Ophth Soln 5 ML Bottle EYERT SCH ×4 (07:28→09:36)
[2023-10-17] MEDS: Phenylephrine 2.5% Ophth Soln 2 ML Bot EYERT SCH ×5 (07:33→09:16)
[2023-10-17] MEDS: Tropicamide 1% Ophth Soln 3 ML Bottle EYERT SCH ×4 (07:38→08:18)
[2023-10-17 07:48] VITALS: BP 130/89; PULSE 60
[2023-10-17] MEDS: Tetracaine HCl/PF 0.5% 4 ML Bottle EYEBOTH SCH ×4 (08:55→09:24)
[~2023-10-17 09:03] MED LIST changes: +Cefuroxime 10 MG/ML SYRINGE EYERT SCH; +Lidocaine 1% PF 2 ML SDV INJECT SCH; -Lidocaine 1%/Sod Bicarbonate in NS 8.4% 1 ML Syringe IDERM PRN; -Sodium Chloride 0.9% 10 ML Syringe FLUSH PRN
[2023-10-17] MEDS: Pilocarpine 4% Ophth Soln 15 ML Bot EYERT SCH ×2 (09:29→09:36)
== END 2023-10-17 09:48 | disposition home or self-care (01) ==
LOC: JD.SDS 09:03
PROVIDERS: ATTEND Ophthalmology
DX: H25.811 Combined forms of age-related cataract, right eye (principal); D48.7 Neoplasm of uncertain behavior of other specified sites; H02.831 Dermatochalasis of right upper eyelid; H02.834 Dermatochalasis of left upper eyelid; H21.81 Floppy iris syndrome; H91.90 Unspecified hearing loss, unspecified ear; H21.41 Pupillary membranes, right eye; E78.00 Pure hypercholesterolemia, unspecified; I10 Essential (primary) hypertension; E03.9 Hypothyroidism, unspecified; J42 Unspecified chronic bronchitis; K21.9 Gastro-esophageal reflux disease without esophagitis; Z87.891 Personal history of nicotine dependence; Z79.899 Other long term (current) drug therapy; Z79.890 Hormone replacement therapy
CPT/HCPCS: 66982; A9270; J0697; V2632; 00142; 99100; J3490

== ENCOUNTER 2023-11-04 10:30 | Day surgery (SDC) | payer MEDICARE, OTHER ==
[2023-11-04] MEDS: Polymyxin B/Trimethoprim 10 ML Bottle EYELF SCH ×4 (11:27→13:23)
[2023-11-04] MEDS: Brimonidine 0.2% Ophth Soln 5 ML Bottle EYELF SCH ×4 (11:31→13:23)
[2023-11-04] MEDS: Phenylephrine 2.5% Ophth Soln 2 ML Bot EYELF SCH ×6 (11:35→13:09)
[2023-11-04] MEDS: Tropicamide 1% Ophth Soln 3 ML Bottle EYELF SCH ×4 (11:44→12:25)
[2023-11-04] MEDS: Proparacaine 0.5% Ophth Soln 15 ML Bottle EYEBOTH SCH ×5 (12:13→13:09)
[2023-11-04] MEDS: Pilocarpine 4% Ophth Soln 15 ML Bot EYELF SCH ×2 (12:14→13:23)
[2023-11-04] MEDS: Cefuroxime 10 MG/ML SYRINGE EYELF SCH ×2 (12:14→13:23)
[2023-11-04] MEDS: Lidocaine 1% PF 2 ML SDV INJECT SCH ×2 (12:14→13:09)
[2023-11-04 13:36] VITALS: BP 176/94; PULSE 65
== END 2023-11-04 13:33 | disposition home or self-care (01) ==
LOC: JD.SDS 10:30
PROVIDERS: ATTEND Ophthalmology
DX: H25.812 Combined forms of age-related cataract, left eye (principal); H21.81 Floppy iris syndrome; H21.40 Pupillary membranes, unspecified eye; H40.051 Ocular hypertension, right eye; D23.111 Other benign neoplasm of skin of right upper eyelid, including canthus; H16.103 Unspecified superficial keratitis, bilateral; H16.223 Keratoconjunctivitis sicca, not specified as Sjogren's, bilateral; H18.593 Other hereditary corneal dystrophies, bilateral; I10 Essential (primary) hypertension; E03.9 Hypothyroidism, unspecified; E78.00 Pure hypercholesterolemia, unspecified; Z87.891 Personal history of nicotine dependence; Z79.82 Long term (current) use of aspirin; Z79.890 Hormone replacement therapy; Z79.899 Other long term (current) drug therapy
CPT/HCPCS: 66982; A9270; J0697; V2632; J3490